=== PATIENT | male | born 1940 | race Caucasian/White ===

== ENCOUNTER 2019-10-29 14:41 | Outpatient (CLI) | payer MEDICARE, SELFPAY ==
--- NOTE | 2019-10-29 | MR_ITS ---
WS: [id number] MRI NECK WITH CONTRAST TECHNIQUE: Noncontrast axial T1, axial T2 FSE fat sat, coronal T2 fat sat, coronal T1, coronal T1 fat sat, sagittal T2 fat sat, plus contrast enhanced coronal, sagittal, and axial T1 fat sat images obta ined. CLINICAL INFORMATION: ATYPICAL FACIAL PAIN COMPARISON: None. FINDINGS: Proximal 7th and 8th cranial nerves appear normal. No evidence of enhancing IAC or CP angle mass. Mil d mucosal thickening in the paranasal sinuses. Mild mucosal thickening frontal sinuses, ethmoid air c ells, and maxillary sinuses. Mild partial opacification left greater than right frontal ethmoidal rec esses. Sphenoid sinuses are well aerated. Mastoid air cells well aerated. Left theresa bullosa. Mild l eft to right nasal septal deviation measuring 4 mm. No cervical lymphadenopathy. Parotid glands and submandibular glands are normal. Normal posterior matthew opharynx. Normal parapharyngeal fat. Normal optic chiasm and pituitary infundibulum. Moderate intracranial parenchymal volume loss. Modera te partially visualized small vessel changes. Chronic lacunar infarcts right deep frontal white matte r and periventricular white matter. Chronic lacunar infarct right basal ganglia. Normal vascular flow voids at the skull base. Small vessel changes in the pollo. Moderate spondylitic changes cervical spi ne with mild central canal stenosis due to disc osteophyte complexes C3-C6. Small vessel changes in t he pollo. Cerebellar atrophy. Neck soft tissues are normal in appearance. MR/MR orbit face neck wo/w* [id number] IMPRESSION: 1. Proximal 7th and 8th cranial nerves are normal in appearance. Mastoid air c ells are well aerated. 2. Mild mucosal thickening in the paranasal sinuses with partial opacification of the left frontal ethmoidal recess. 3. Prominent left theresa bullosa measuring 1.9 cm. 4. Moderate small vessel changes with moderate parenchymal volume loss partial ly visualized intracranial.
== END 2019-10-29 14:42 | disposition home or self-care (01) ==
LOC: RADWPI 14:52
PROVIDERS: Family Provider Family Medicine; PCP Family Medicine; Visit Provider Specialist
DX: G50.1 Atypical facial pain (principal); J34.89 Other specified disorders of nose and nasal sinuses
CPT/HCPCS: 70543; A9579

== ENCOUNTER → 2019-11-10 08:29 | Outpatient (BNVA) | payer MEDICARE, SELFPAY | PROVIDERS: Family Provider Family Medicine; PCP Family Medicine; Referring Provider Specialist; Visit Provider Specialist | DX: G50.0 Trigeminal neuralgia (principal); G11.9 Hereditary ataxia, unspecified | CPT/HCPCS: 99205 ==

== ENCOUNTER → 2019-12-16 13:35 | Outpatient (BNVA) | payer MEDICARE, SELFPAY | PROVIDERS: Family Provider Family Medicine; PCP Family Medicine; Visit Provider Specialist | DX: R29.90 Unspecified symptoms and signs involving the nervous system (principal); G11.9 Hereditary ataxia, unspecified; G50.0 Trigeminal neuralgia | CPT/HCPCS: 99213 ==

== ENCOUNTER → 2020-07-27 14:57 | Outpatient (BNVA) | payer MEDICARE, SELFPAY | PROVIDERS: Family Provider Family Medicine; PCP Family Medicine; Referring Provider Physician Assistant Medical; Visit Provider Nurse Practitioner Family | DX: N39.0 Urinary tract infection, site not specified (principal) | CPT/HCPCS: 81003; 87077; 87086; 87184 ==

== ENCOUNTER → 2020-10-19 11:33 | Outpatient (BNVA) | payer MEDICARE, SELFPAY | PROVIDERS: Family Provider Family Medicine; PCP Family Medicine; Visit Provider Urology | DX: R33.9 Retention of urine, unspecified (principal); N39.0 Urinary tract infection, site not specified | CPT/HCPCS: 81003; 87077; 87086; 87184 ==

== ENCOUNTER → 2020-10-25 13:12 | Outpatient (BNVA) | payer MEDICARE, SELFPAY | PROVIDERS: Family Provider Family Medicine; PCP Family Medicine; Visit Provider Specialist | DX: G50.0 Trigeminal neuralgia (principal); G11.9 Hereditary ataxia, unspecified; F03.90 Unspecified dementia, unspecified severity, without behavioral disturbance, psychotic disturbance, mood disturbance, and anxiety; Z87.891 Personal history of nicotine dependence | CPT/HCPCS: 99214 ==

== ENCOUNTER 2021-03-13 10:45 | Inpatient (IN) | payer MEDICARE, SELFPAY ==
[2021-03-13] VITALS (17 sets, daily range): BP systolic 115–146; BP diastolic 65–99; PULSE 57–110; RESP 13–27; TEMP 36.6–37.1; O2SAT 92–97; BMI 28.7
--- NOTE | 2021-03-13 11:13 | XRR_ITS ---
PROCEDURE INFORMATION: Exam: XR Chest Exam date and time: 03/13/2021 11:13 AM Age: 80 years old Clinical indication: Sternal or substernal pain and left-sided; Prior surgery; Surgery type: Heart stents; Patient HX: Md complaint: Chest pain and chest heaviness TECHNIQUE: Imaging protocol: XR of the chest. Views: 1 view. COMPARISON: CT abdomen pelvis w con* [id number] 07/26/2020 11:18 AM FINDINGS: Lungs: Patchy bibasilar opacities are present which may be due to bibasilar pneumonia. Pleural spaces: Unremarkable. No pleural effusion. No pneumothorax. Heart/Mediastinum: Unremarkable. No cardiomegaly. Bones/joints: Unremarkable. Other findings: There is dystrophic calcification below the right shoulder joint which may be from old injury. XR/XR chest 1V portable [id number] IMPRESSION: Patchy bibasilar opacities which may be due to bibasilar pneumonia.
--- NOTE | 2021-03-13 11:13 | CT_ITS ---
WS: [id number] CTA OF THE CHEST WITH PULMONARY EMBOLISM PROTOCOL TECHNIQUE: High-resolution contrast enhanced CTA of the chest with coronal and sagittal reformatted i mages with pulmonary embolism protocol. MIP images are also reviewed. CLINICAL INFORMATION: chest pain COMPARISON: None. DLP: 561.[address] scans at [facility] [place] use at least one of these dose optimization techniques: automated e xposure control; mA and/or kV adjustment per patient size (includes targeted exams where dose is matc hed to clinical indication); or iterative reconstruction. FINDINGS: Proximal main pulmonary arteries are normal. Normal segmental and subsegmental pulmonary arteries. No evidence for pulmonary embolus. Moderate chronic emphysematous changes. Subsegmental atelectasis in the lung bases with slight patchy infiltrates. Tiny left pleural effusion. Trace pleural fluid right lower lobe. Noncalcified 4 mm nod ule right upper lobe. Enlarged anterior mediastinal and peribronchial lymph nodes nonspecific but may be reactive. Calcified right hilar nodes. Normal caliber thoracic aorta. Aortic calcification. Adrenal glands are normal. Partially visualized bilateral renal cysts.Hypertrophic changes thoracic s pine with changes of diffuse idiopathic skeletal hyperostosis. CT/CT angio chest PE protcl [id number] IMPRESSION: 1. Proximal main pulmonary arteries are normal. No evidence of pulmonary embol us. 2. Moderate chronic emphysematous changes with patchy infiltrates in both lowe r lobes. Recommend correlation for pneumonia. Tiny left and trace right pleural fluid. 3. Enlarged anterior mediastinal and peribronchial lymph nodes nonspecific but may be reactive. 4. No other significant findings.
--- NOTE | 2021-03-13 11:15 | W.ED.CHESTPA ---
HPI - Chest Pain General: Chief Complaint: Chest Pain Stated Complaint: CHEST PAIN Time Seen by Provider: 03/13/21 10:51 History of Present Illness: HPI narrative: 80-year-old male presents to the emergency room from home. He had chest pain this afternoon is not been having any recently. Chest pain was relieved after 5 nitro took to his own and then several that the EMS gave him after he arrived here began bothering and interestingly also complained of chest pain with deep inspiration here. Patient has known history of coronary disease with previous stenting. MD complaint: chest pain and chest heaviness Pertinent past history: coronary artery disease Onset (ago): hour(s) Timing of current episode: episodic Prior episodes: Yes Onset: during rest Pain location: substernal and left chest Severity: moderate Quality: tightness, heaviness and similar to prior MD Relieving factors: nitroglycerin and rest Exacerbating factors: exertion Associated symptoms: Deny abdominal pain, diaphoresis, dyspnea, fever(s), leg edema, nausea, palpitations, sense of impending doom, syncope or vomiting Treatment prior to arrival: none Review of Systems Const: Denies: fever(s) or diaphoresis ENMT: Denies: throat pain, ear or mastoid pain, nasal discharge or nasal congestion Card: Denies: palpitations or syncope Resp: Denies: dyspnea GI: Denies: abdominal pain, nausea or vomiting : Denies: flank pain, dysuria, urinary frequency or urinary urgency Skin/Breast: Denies: rash or pruritus [facility] PFSH: Medical History Gross hematuria History of abdominal aortic aneurysm Recurrent UTI Urinary retention Surgical History H/O cataract extraction H/O hernia repair History of appendectomy History of back surgery Family History Mother , at age 82 Alzheimer disease Father , at age 62 Cancer Other CAD (coronary artery disease) Diabetes Social History Smoking and tobacco status: current every day smoker smokeless tobacco Second hand smoke exposure: No Smoking risk assessment/counseling performed?: No Alcohol intake: never Marital status: Current occupational status: retired History of recent travel: No Physical Exam Const: COMMON NORMALS: no acute distress GENERAL APPEARANCE: cooperative and comfortable ORIENTATION/CONSCIOUSNESS: Yes awake HENMT: COMMON NORMALS: normocephalic, atraumatic and hearing grossly normal bilaterally HEAD & SCALP: normocephalic and atraumatic Neck/C-Spine: COMMON NORMALS: no JVD Resp: COMMON NORMALS: normal respiratory effort, No retractions, No use of accessory muscles and clear to auscultation bilaterally AUSCULTATION: clear to auscultation bilaterally Cardio: COMMON NORMALS: no JVD, regular rate, regular rhythm and No murmurs present (Cardio) RATE: regular rate RHYTHM: regular rhythm GI: COMMON NORMALS: Soft to palpation and No hepatosplenomegaly present AUSCULTATION: Yes normoactive bowel sounds PALPATION: Yes Soft to palpation, No Tenderness to palpation present (GI), No Guarding due to palpation present (GI) and Yes No hepatosplenomegaly present Extremity: COMMON NORMALS: normal to inspection, capillary refill normal, no clubbing, cyanosis or edema, no calf tenderness and no pedal edema Skin: COMMON NORMALS: no rashes or lesions noted GENERAL SKIN EXAM: no rashes or lesions noted Course Vital Signs: Vital signs: Vital Signs Temperature 99.9 F H 03/15/21 03:26 Pulse Rate 0 L 03/15/21 05:00 Respiratory Rate 25 H 03/15/21 00:54 Blood Pressure 79/54 03/15/21 04:45 Pulse Oximetry 89 L 03/15/21 04:45 MDM - Chest Pain MDM Narrative: Medical decision making narrative: Labs and imaging reviewed as on the chart. Patient appears to have a mild bilateral lower lobe pneumonia in addition I am concerned about his description of chest pain. I do not think he can safely be discharged home he needs further evaluation. He has significant risk factors the delta on his troponin is negative 4, but his heart score puts him in the intermediate risk category. Discussed with hospitalist orders written Lab Data: Labs: Lab Results 03/13/21 03/13/21 03/13/21 11:01 11:01 11:01 WBC 9.0 10^3/uL 10^3/ uL (4.0-10.0) RBC 4.19 10^6/uL 10^6 /uL (4.1-5.3) Hgb 13.2 g/dL g/dL (11.7-16.6) Hct 40.5 % L % (42.0-52.0) MCV 96.7 fl H fl (80-94) MCH 31.5 pg pg (28.0-34.0) MCHC 32.6 g/dL g/dL (30.0-36.0) RDW 13.7 % % (12.1-15.1) Plt Count 142 10^3/cmm 10^3 /cmm (130-400) MPV 10.5 fL H fL (7.4-10.4) Neut % (Auto) 75.1 % % Lymph % (Auto) 10.7 % % Thomas % (Auto) 11.2 % % Eos % (Auto) 2.2 % % Baso % (Auto) 0.4 % % Neut # (Auto) 6.74 10^3/uL 10^3 /uL (1.8-7.7) Lymph # (Auto) 1.0 10^3/uL 10^3/ uL (0.8-4.8) Thomas # (Auto) 1.0 10^3/uL H 10^ 3/uL (0.2-0.9) Eos # (Auto) 0.2 10^3/uL 10^3/ uL (0.0-0.8) Baso # (Auto) 0.0 10^3/uL 10^3/ uL (0.0-0.1) Nucleated RBC % (a uto) 0 % % Total Counted Atypical Lymphs % Absolute Neutrophi ls Segmented Neutroph ils Abs Segm Neuts (Ma n) Band Neutrophils Abs Band Neuts (Ma n) Absolute Lymphocyt es Lymphocytes (Manua l) Monocytes (Manual) Absolute Monocytes Eosinophils (Manua l) Absolute Eosinophi ls Basophils (Manual) Absolute Basophils Metamyelocytes Nucleated RBCs Nucleated RBCs # 0.0 /100WBC /100W BC Toxic Granulation Toxic Vacuolation Platelet Estimate Specimen Type Sample Site ABG pH ABG pCO2 ABG pO2 ABG HCO3 ABG O2 Saturation ABG Base Excess Samir Test A-a O2 Gradient Hematocrit Hgb O2 Saturation Carboxyhemoglobin Methemoglobin Total Hemoglobin Ionized Calcium O2 Delivery Device O2 Liters/Min FiO2 Tidal Volume PEEP Termite Inspector ID Sodium 138 mmol/L mmol/L (136-145) Potassium 4.4 mmol/L mmol/L (3.5-5.1) Chloride 102 mmol/L mmol/L (98-107) Carbon Dioxide 25 mmol/L mmol/L (22-29) Anion Gap 15.4 (5-19) BUN 20 mg/dL mg/dL (8-23) Creatinine 0.9 mg/dL mg/dL (0.7-1.2) GFR Calculation Not Reportable Glucose 106 mg/dL mg/dL (65-115) POC Glucose Calculated Osmolal ity 289 mOsm/kg mOsm/ kg (285-295) Calcium 9.2 mg/dL mg/dL (8.5-10.5) Phosphorus Magnesium Total Bilirubin 0.3 mg/dL mg/dL (0.15-1.2) AST 22 U/L U/L (0-40) ALT 32 U/L U/L (0-41) Alkaline Phosphata se 92 IU/L IU/L (40-130) Creatine Kinase 70 U/L U/L (39-308) Troponin T Baselin e 30 ng/L H ng/L (0-15) Troponin T 120 Min [place] Troponin T Troponin T Hi Sens 6Hr Troponin T Hi Sens 6Hr Delta C-Reactive Protein NT-Pro-B Natriuret Pep 647 pg/mL H pg/mL (0-450) Total Protein 5.8 g/dL L g/dL (6.6-8.7) Albumin 3.8 g/dL g/dL (3.5-5.2) Globulin 2.0 g/dL g/dL (1.3-4.6) Procalcitonin TSH Random Cortisol Urine Color Urine Appearance Urine pH Ur Specific Gravit y Urine Protein Urine Glucose (UA) Urine Ketones Urine Blood Urine Nitrate Urine Bilirubin Urine Urobilinogen Ur Leukocyte Daphne ase Urine RBC Urine WBC Ur Squamous Epith Cells Ur Renal Epithelia l Cell Amorphous Sediment Urine Bacteria Nasal/Oral COVID-1 9 PCR SARS-CoV-2 Ag (Rap id) 03/13/21 03/13/21 03/13/21 11:01 13:10 13:32 WBC RBC Hgb Hct MCV MCH MCHC RDW Plt Count MPV Neut % (Auto) Lymph % (Auto) Thomas % (Auto) Eos % (Auto) Baso % (Auto) Neut # (Auto) Lymph # (Auto) Thomas # (Auto) Eos # (Auto) Baso # (Auto) Nucleated RBC % (a uto) Total Counted Atypical Lymphs % Absolute Neutrophi ls Segmented Neutroph ils Abs Segm Neuts (Ma n) Band Neutrophils Abs Band Neuts (Ma n) Absolute Lymphocyt es Lymphocytes (Manua l) Monocytes (Manual) Absolute Monocytes Eosinophils (Manua l) Absolute Eosinophi ls Basophils (Manual) Absolute Basophils Metamyelocytes Nucleated RBCs Nucleated RBCs # Toxic Granulation Toxic Vacuolation Platelet Estimate Specimen Type Sample Site ABG pH ABG pCO2 ABG pO2 ABG HCO3 ABG O2 Saturation ABG Base Excess Samir Test A-a O2 Gradient Hematocrit Hgb O2 Saturation Carboxyhemoglobin Methemoglobin Total Hemoglobin Ionized Calcium O2 Delivery Device O2 Liters/Min FiO2 Tidal Volume PEEP Termite Inspector ID Sodium Potassium Chloride Carbon Dioxide Anion Gap BUN Creatinine GFR Calculation Glucose POC Glucose Calculated Osmolal ity Calcium Phosphorus Magnesium Total Bilirubin AST ALT Alkaline Phosphata se Creatine Kinase Troponin T Baselin e Troponin T 120 Min [place] 25.90 ng/L H ng/L (0-15) Delta Troponin T -4.10 ABS# L ABS# (0-10) Troponin T Hi Sens 6Hr Troponin T Hi Sens 6Hr Delta C-Reactive Protein 121.4 mg/L H mg/L (0.0-4.9) NT-Pro-B Natriuret Pep Total Protein Albumin Globulin Procalcitonin 0.13 ng/mL ng/mL (0-0.5) TSH Random Cortisol Urine Color Straw (Yellow) Urine Appearance Sl hazy (CLEAR) Urine pH 5 (5-7) Ur Specific Gravit y 1.010 (1.005-1.030) Urine Protein Neg (Negative) Urine Glucose (UA) Norm (Normal) Urine Ketones Negative (Negative) Urine Blood 2+ H (Negative) Urine Nitrate Negative (Negative) Urine Bilirubin Neg (Negative) Urine Urobilinogen Norm mg/dL mg/dL (Negative) Ur Leukocyte Daphne ase 1+ H (Negative) Urine RBC Not Reportable Urine WBC 15-25 /hpf H /hpf (0-5) Ur Squamous Epith Cells Not Reportable Ur Renal Epithelia l Cell 0-2 /hpf /hpf Amorphous Sediment Not Reportable Urine Bacteria 3+ /hpf H /hpf (NONE) Nasal/Oral COVID-1 9 PCR SARS-CoV-2 Ag (Rap id) 03/13/21 03/13/21 03/13/21 13:34 13:34 16:27 WBC RBC Hgb Hct MCV MCH MCHC RDW Plt Count MPV Neut % (Auto) Lymph % (Auto) Thomas % (Auto) Eos % (Auto) Baso % (Auto) Neut # (Auto) Lymph # (Auto) Thomas # (Auto) Eos # (Auto) Baso # (Auto) Nucleated RBC % (a uto) Total Counted Atypical Lymphs % Absolute Neutrophi ls Segmented Neutroph ils Abs Segm Neuts (Ma n) Band Neutrophils Abs Band Neuts (Ma n) Absolute Lymphocyt es Lymphocytes (Manua l) Monocytes (Manual) Absolute Monocytes Eosinophils (Manua l) Absolute Eosinophi ls Basophils (Manual) Absolute Basophils Metamyelocytes Nucleated RBCs Nucleated RBCs # Toxic Granulation Toxic Vacuolation Platelet Estimate Specimen Type Sample Site ABG pH ABG pCO2 ABG pO2 ABG HCO3 ABG O2 Saturation ABG Base Excess Samir Test A-a O2 Gradient Hematocrit Hgb O2 Saturation Carboxyhemoglobin Methemoglobin Total Hemoglobin Ionized Calcium O2 Delivery Device O2 Liters/Min FiO2 Tidal Volume PEEP Termite Inspector ID Sodium Potassium Chloride Carbon Dioxide Anion Gap BUN Creatinine GFR Calculation Glucose POC Glucose Calculated Osmolal ity Calcium Phosphorus Magnesium Total Bilirubin AST ALT Alkaline Phosphata se Creatine Kinase Troponin T Baselin e Troponin T 120 Min [place] Troponin T Troponin T Hi Sens 6Hr 28.17 ng/L H ng/L (0-15) Troponin T Hi Sens 6Hr Delta -1.83 ng/L L ng/L (0-12) C-Reactive Protein NT-Pro-B Natriuret Pep Total Protein Albumin Globulin Procalcitonin TSH Random Cortisol Urine Color Urine Appearance Urine pH Ur Specific Gravit y Urine Protein Urine Glucose (UA) Urine Ketones Urine Blood Urine Nitrate Urine Bilirubin Urine Urobilinogen Ur Leukocyte Daphne ase Urine RBC Urine WBC Ur Squamous Epith Cells Ur Renal Epithelia l Cell Amorphous Sediment Urine Bacteria Nasal/Oral COVID-1 9 PCR Not detected SARS-CoV-2 Ag (Rap id) Negative (Negative) 03/14/21 03/14/21 03/14/21 01:49 02:00 02:00 WBC 2.9 10^3/uL L 10^ 3/uL (4.0-10.0) RBC 3.95 10^6/uL L 10 ^6/uL (4.1-5.3) Hgb 12.3 g/dL g/dL (11.7-16.6) Hct 40.4 % L % (42.0-52.0) MCV 102.3 fl H D fl (80-94) MCH 31.1 pg pg (28.0-34.0) MCHC 30.4 g/dL D g/dL (30.0-36.0) RDW 13.7 % % (12.1-15.1) Plt Count 77 10^3/cmm L D 1 0^3/cmm (130-400) MPV 10.1 fL fL (7.4-10.4) Neut % (Auto) Lymph % (Auto) Not Reportable Thomas % (Auto) Not Reportable Eos % (Auto) Baso % (Auto) Neut # (Auto) Lymph # (Auto) Not Reportable Thomas # (Auto) Not Reportable Eos # (Auto) Baso # (Auto) Nucleated RBC % (a uto) Total Counted 100 (0-100) Atypical Lymphs % 0.0 % % (0-5) Absolute Neutrophi ls 2.1 10^3/cmm 10^3 /cmm (1.4-6.5) Segmented Neutroph ils 41 % % Abs Segm Neuts (Ma n) 1.2 10/cmm L 10/c mm (1.6-7.1) Band Neutrophils 31.0 % % Abs Band Neuts (Ma n) 0.9 10^3/cmm 10^3 /cmm (0.0-1.2) Absolute Lymphocyt es 0.9 10^3/cmm L 10 ^3/cmm (1.2-3.4) Lymphocytes (Manua l) 31 % % Monocytes (Manual) 0.0 % % Absolute Monocytes 0.0 10^3/cmm L 10 ^3/cmm (0.1-0.6) Eosinophils (Manua l) 1 % % Absolute Eosinophi ls 0.0 10^3/cmm 10^3 /cmm (0.0-0.7) Basophils (Manual) 0.0 % % Absolute Basophils 0.0 10^3/cmm 10^3 /cmm (0.0-0.2) Metamyelocytes 10.0 % % Nucleated RBCs 2.0 /100WBC H /10 0WBC (0-1) Nucleated RBCs # Toxic Granulation 1+ H Toxic Vacuolation 1+ H Platelet Estimate Decreased (Normal) Specimen Type Sample Site ABG pH ABG pCO2 ABG pO2 ABG HCO3 ABG O2 Saturation ABG Base Excess Samri Test A-a O2 Gradient Hematocrit Hgb O2 Saturation Carboxyhemoglobin Methemoglobin Total Hemoglobin Ionized Calcium O2 Delivery Device O2 Liters/Min FiO2 Tidal Volume PEEP Termite Inspector ID Sodium 140 mmol/L mmol/L (136-145) Potassium 4.7 mmol/L mmol/L (3.5-5.1) Chloride 106 mmol/L mmol/L (98-107) Carbon Dioxide 19 mmol/L L mmol/ L (22-29) Anion Gap 19.7 H (5-19) BUN 28 mg/dL H mg/dL (8-23) Creatinine 1.6 mg/dL H mg/dL (0.7-1.2) GFR Calculation Not Reportable Glucose 144 mg/dL H mg/dL (65-115) POC Glucose 127 mg/dL H mg/dL (70-110) Calculated Osmolal ity 298 mOsm/kg H mOs m/kg (285-295) Calcium 8.6 mg/dL mg/dL (8.5-10.5) Phosphorus 5.0 mg/dL H mg/dL (2.5-4.5) Magnesium 2.3 mg/dL mg/dL (1.7-2.3) Total Bilirubin 0.7 mg/dL mg/dL (0.15-1.2) AST 103 U/L H U/L (0-40) ALT 104 U/L H U/L (0-41) Alkaline Phosphata se 196 IU/L H IU/L (40-130) Creatine Kinase Troponin T Baselin e Troponin T 120 Min [place] Troponin T Troponin T Hi Sens 6Hr Troponin T Hi Sens 6Hr Delta C-Reactive Protein NT-Pro-B Natriuret Pep 1172 pg/mL H pg/m L (0-450) Total Protein 5.3 g/dL L g/dL (6.6-8.7) Albumin 3.1 g/dL L g/dL (3.5-5.2) Globulin 2.2 g/dL g/dL (1.3-4.6) Procalcitonin TSH 9.94 uIU/mL H uIU /mL (0.27-4.20) Random Cortisol Urine Color Urine Appearance Urine pH Ur Specific Gravit y Urine Protein Urine Glucose (UA) Urine Ketones Urine Blood Urine Nitrate Urine Bilirubin Urine Urobilinogen Ur Leukocyte Daphne ase Urine RBC Urine WBC Ur Squamous Epith Cells Ur Renal Epithelia l Cell Amorphous Sediment Urine Bacteria Nasal/Oral COVID-1 9 PCR SARS-CoV-2 Ag (Rap id) 03/14/21 03/14/21 03/14/21 02:00 02:17 03:39 WBC RBC Hgb Hct MCV MCH MCHC RDW Plt Count MPV Neut % (Auto) Lymph % (Auto) Thomas % (Auto) Eos % (Auto) Baso % (Auto) Neut # (Auto) Lymph # (Auto) Thomas # (Auto) Eos # (Auto) Baso # (Auto) Nucleated RBC % (a uto) Total Counted Atypical Lymphs % Absolute Neutrophi ls Segmented Neutroph ils Abs Segm Neuts (Ma n) Band Neutrophils Abs Band Neuts (Ma n) Absolute Lymphocyt es Lymphocytes (Manua l) Monocytes (Manual) Absolute Monocytes Eosinophils (Manua l) Absolute Eosinophi ls Basophils (Manual) Absolute Basophils Metamyelocytes Nucleated RBCs Nucleated RBCs # Toxic Granulation Toxic Vacuolation Platelet Estimate Specimen Type Arterial Arterial Sample Site Brachial, left ABG pH 7.19 L 7.15 L* (7.35-7.45) (7.35-7.45) ABG pCO2 47.6 mmHg H mmHg 52.7 mmHg H mmHg (35-45) (35-45) ABG pO2 65.6 mmHg L mmHg 60.9 mmHg L mmHg (80.0-100.0) (80.0-100.0) ABG HCO3 17.9 mmol/L L mmo l/L 18.5 mmol/L L mmo l/L (22-26) (22-26) ABG O2 Saturation 87.6 84.2 ABG Base Excess -10.2 mmol/L L mm ol/L -10.3 mmol/L L mm ol/L (-2.0-2.0) (-2.0-2.0) Samir Test N/a N/a A-a O2 Gradient 3.5 mmHg L mmHg 77.1 mmHg H mmHg (5-10) (5-10) Hematocrit 37.6 % L % 33.2 % L % (42-52) (42-52) Hgb O2 Saturation 85.8 % L % 83.4 % L % (95-100) (95-100) Carboxyhemoglobin 1.1 %THgb %THgb 0.8 %THgb %THgb (0.4-20.1) (0.4-20.1) Methemoglobin 1.0 % % 0.2 % L % (0.4-1.5) (0.4-1.5) Total Hemoglobin 12.3 g/dL L g/dL 10.8 g/dL L g/dL (14-18) (14-18) Ionized Calcium 1.2 mmol/L mmol/L 1.2 mmol/L mmol/L (1.1-1.4) (1.1-1.4) O2 Delivery Device Ambu Vent O2 Liters/Min 15.0 % % FiO2 100.0 % % Tidal Volume 0.45 PEEP 8.0 cmH20 cmH20 Termite Inspector ID Harkr Rashawn Sodium 140.0 mmol/L mmol /L 142.0 mmol/L mmol /L (131-143) (131-143) Potassium 4.2 mmol/L mmol/L 4.6 mmol/L mmol/L (3.5-5.0) (3.5-5.0) Chloride Carbon Dioxide Anion Gap BUN Creatinine GFR Calculation Glucose 135.0 mg/dL H mg/ dL 80.0 mg/dL mg/dL (70-115) (70-115) POC Glucose Calculated Osmolal ity Calcium Phosphorus Magnesium Total Bilirubin AST ALT Alkaline Phosphata se Creatine Kinase Troponin T Baselin e 59 ng/L H ng/L (0-15) Troponin T 120 Min [place] Troponin T Troponin T Hi Sens 6Hr Troponin T Hi Sens 6Hr [place] C-Reactive Protein NT-Pro-B Natriuret Pep Total Protein Albumin Globulin Procalcitonin TSH Random Cortisol Urine Color Urine Appearance Urine pH Ur Specific Gravit y Urine Protein Urine Glucose (UA) Urine Ketones Urine Blood Urine Nitrate Urine Bilirubin Urine Urobilinogen Ur Leukocyte Daphne ase Urine RBC Urine WBC Ur Squamous Epith Cells Ur Renal Epithelia l Cell Amorphous Sediment Urine Bacteria Nasal/Oral COVID-1 9 PCR SARS-CoV-2 Ag (Rap id) 03/14/21 03/14/21 03:53 03:53 WBC RBC Hgb Hct MCV MCH MCHC RDW Plt Count MPV Neut % (Auto) Lymph % (Auto) Thomas % (Auto) Eos % (Auto) Baso % (Auto) Neut # (Auto) Lymph # (Auto) Thomas # (Auto) Eos # (Auto) Baso # (Auto) Nucleated RBC % (a uto) Total Counted Atypical Lymphs % Absolute Neutrophi ls Segmented Neutroph ils Abs Segm Neuts (Ma n) Band Neutrophils Abs Band Neuts (Ma n) Absolute Lymphocyt es Lymphocytes (Manua l) Monocytes (Manual) Absolute Monocytes Eosinophils (Manua l) Absolute Eosinophi ls Basophils (Manual) Absolute Basophils Metamyelocytes Nucleated RBCs Nucleated RBCs # Toxic Granulation Toxic Vacuolation Platelet Estimate Specimen Type Sample Site ABG pH ABG pCO2 ABG pO2 ABG HCO3 ABG O2 Saturation ABG Base Excess Samir Test A-a O2 Gradient Hematocrit Hgb O2 Saturation Carboxyhemoglobin Methemoglobin Total Hemoglobin Ionized Calcium O2 Delivery Device O2 Liters/Min FiO2 Tidal Volume PEEP Termite Inspector ID Sodium Potassium Chloride Carbon Dioxide Anion Gap BUN Creatinine GFR Calculation Glucose POC Glucose Calculated Osmolal ity Calcium Phosphorus Magnesium Total Bilirubin AST ALT Alkaline Phosphata se Creatine Kinase Troponin T Baselin e Troponin T 120 Min [place] 79.51 ng/L H ng/L (0-15) Delta Troponin T 20.51 ABS# H* ABS # (0-10) Troponin T Hi Sens 6Hr Troponin T Hi Sens 6Hr [place] C-Reactive Protein 85.8 mg/L H mg/L (0.0-4.9) NT-Pro-B Natriuret Pep Total Protein Albumin Globulin Procalcitonin 20.01 ng/mL H ng/ mL (0-0.5) TSH Random Cortisol 44.73 ug/dL H ug/ dL (2.47-19.5) Urine Color Urine Appearance Urine pH Ur Specific Gravit y Urine Protein Urine Glucose (UA) Urine Ketones Urine Blood Urine Nitrate Urine Bilirubin Urine Urobilinogen Ur Leukocyte Daphne ase Urine RBC Urine WBC Ur Squamous Epith Cells Ur Renal Epithelia l Cell Amorphous Sediment Urine Bacteria Nasal/Oral COVID-1 9 PCR SARS-CoV-2 Ag (Rap id) Discharge Plan Discharge Patient Disposition: Admitted As Inpatient Admit Provider: Presley Robbins Clinical Impression: Pneumonia, Chest pain Condition: Stable Coding Level of Care Code ED Temple Marker for Chg Fwd Exam Comprehensive
[2021-03-13 11:26] LABS: Basophils % 0.4 %; Eosinophils # 0.2 10^3/uL (0.0-0.8); Eosinophils % 2.2 %; Hematocrit 40.5 % (42.0-52.0); Hemoglobin 13.2 g/dL (11.7-16.6); Lymphocytes % 10.7 %; Mean Corpuscular HGB Conc 32.6 g/dL (30.0-36.0); Mean Corpuscular Hemoglobin 31.5 pg (28.0-34.0); Mean Corpuscular Volume 96.7 fl (80-94); Mean Platelet Volume 10.5 fL (7.4-10.4); Monocytes % 11.2 %; Neutrophils # 6.74 10^3/uL (1.8-7.7); Neutrophils % 75.1 %; Nucleated Red Blood Cells % 0 %; Platelet Count 142 10^3/cmm (130-400); Red Blood Count 4.19 10^6/uL (4.1-5.3); Red Cell Distribution Width 13.7 % (12.1-15.1)
[2021-03-13] MEDS: nitroglycerin 1 gm/inch oint Pkt 0.5 INCH TOPICAL (11:56)
[2021-03-13] MEDS: morphine 4 mg/mL SDV 1 mL 2 MG IVP (11:56)
[2021-03-13 12:00] LABS: Troponin(5th) Baseline 30 ng/L (0-15)
[2021-03-13 12:10] LABS: Alanine Aminotransferase 32 U/L (0-41); Albumin Level 3.8 g/dL (3.5-5.2); Alkaline Phosphatase 92 IU/L (40-130); Anion Gap 15.4 (5-19); Aspartate Amino Transferase 22 U/L (0-40); Blood Urea Nitrogen 20 mg/dL (8-23); Calcium 9.2 mg/dL (8.5-10.5); Carbon Dioxide 25 mmol/L (22-29); Chloride 102 mmol/L (98-107); Creatine Phosphokinase 70 U/L (39-308); Glucose 106 mg/dL (65-115); NT Pro B Type Natriuretic Pept 647 pg/mL (0-450); Osmolality Calculated 289 mOsm/kg (285-295); Potassium 4.4 mmol/L (3.5-5.1); Sodium 138 mmol/L (136-145); Total Bilirubin 0.3 mg/dL (0.15-1.2); Total Protein 5.8 g/dL (6.6-8.7)
[2021-03-13] MEDS: iohexol 350 mg/mL 100 mL Btl IV (12:34)
--- NOTE | 2021-03-13 13:13 | ECG_ITS ---
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 Measurements Intervals [place] Rate: 64 P: -45 SC: 331 QRS: -6 QRSD: 158 T: 18 QT: 426 QTc: 440 Interpretive Statements SINUS RHYTHM WITH FIRST DEGREE AV BLOCK INTRAVENTRICULAR CONDUCTION DELAY [130+ ms QRS DURATION] POSSIBLE LATERAL MYOCARDIAL INFARCTION , OF INDETERMINATE AGE [30 ms Q WAVE IN I/aVL/V5/V6] Compared to ECG 03/13/2021 11:14:01 Myocardial infarct finding now present Sinus bradycardia no longer present Electronically Signed On 03-14-2021 23:43:31 CDT by Serge Sevilla M.D. [id number]
[2021-03-13] MEDS: levofloxacin-dextrose 5 % 750 MG/150 ML PREMIX 100 MG IV (14:30)
[2021-03-13] MEDS: nitroglycerin drip 50 MG/250 ML PREMIX IV (14:32)
[2021-03-13 14:48] LABS: SARS Covid-2 Antigen Negative (Negative)
--- NOTE | 2021-03-13 15:23 | PM.HP ---
Providers/Chief Complaint Admitting Physician: Presley Robbins MD Primary Care Provider: Angie Mendez MD Chief Complaint: CHEST PAIN History of Present Illness Sonia Castellon is a 80 year old male history of recurrent UTIs, cerebellar dysfunction, trigeminal neuralgia, dementia, CAD status post stenting x1 who presents to [facility] due to complaints of chest pain. Patient tells her that he lives in [place] with his , he cannot walk due to cerebellar dysfunction, bilateral extremity weakness and neuropathy, he ambulates in a walker, he has been doing well relatively, has received both Pfizer vaccines roughly 2 to 3 months ago. He tells me that this morning he woke up with severe substernal chest pain, left-sided, radiating to left shoulder, associate with some shortness of breath, no lightheadedness, dizziness, night no diaphoresis, pain abated a bit with the first nitroglycerin, however the pain started to radiate to the right chest, and persisted beyond 2 nitroglycerin, he then called the ambulance and was brought to [facility], here he continued to complain of chest pain, was placed on a nitroglycerin drip, chest pain has improved, but has complaints of pleuritic-like chest pain, CT angiogram of the chest was unremarkable for pulmonary emboli, but does show patchy infiltrates in both lower lobes. Baseline troponin 30, delta 4.1, BNP 647, EKG no acute ST-T wave changes, hospitalist team was called for admission due to continued chest pain. Review of Systems Const: Denies: fever(s), chills, fatigue or malaise Eyes: Denies: change in vision or blurry vision ENMT: Denies: nasal congestion Card: Reports: chest pain and lightheadedness; Denies: palpitations, irregular heart rhythm, edema, swelling of feet/ankles, syncope, pre-syncope or dyspnea on exertion Resp: Reports: dyspnea and non-productive cough; Denies: productive cough or wheezing GI: Denies: abdominal pain, nausea, vomiting, hematemesis, diarrhea, constipation, hematochezia or melena : Denies: flank pain, difficulty urinating, dysuria or urinary frequency Musc: Denies: neck pain or back pain Skin/Breast: Denies: rash Neuro: Denies: headache(s), dizziness or vertigo Endo: Denies: polyuria or polydipsia Medications/Allergies Home Medications Medication Instructions Recorded Confirmed Last Taken Type allopurinol 300 mg tablet 300 mg PO DAILY 11/10/19 03/13/21 03/12/21 History finasteride 5 mg tablet 5 mg PO DAILY 11/10/19 03/13/21 03/12/21 History lisinopril 20 mg tablet 20 mg PO DAILY 11/10/19 03/13/21 03/12/21 History pravastatin 20 mg tablet 20 mg PO DAILY 11/10/19 03/13/21 03/12/21 History fluticasone propionate 50 1 spray INTRANASAL DAILY 07/27/20 03/13/21 03/12/21 History mcg/actuation nasal spray,suspension ipratropium bromide 42 mcg (0.06 2 spray INTRANASAL BID PRN ml 10/19/20 03/13/21 Unknown History %) nasal spray ascorbic acid (vitamin C) 1,000 mg 1,000 mg PO BID tab 11/22/20 03/13/21 03/12/21 History tablet colchicine 0.6 mg tablet 0.6 mg PO DAILY PRN 12/27/20 03/13/21 Unknown History lamotrigine 100 mg tablet 100 mg PO BID #90 tab 01/09/21 03/13/21 03/12/21 Rx methenamine hippurate 1 gram tablet 1 g PO BID #180 tab 02/28/21 03/13/21 03/12/21 Rx aspirin 81 mg PO DAILY 03/13/21 03/13/21 03/13/21 History 4 tabs 03/13/21 buspirone 10 mg PO TID 03/13/21 03/13/21 03/12/21 History carvedilol 25 mg PO BID 03/13/21 03/13/21 03/12/21 History donepezil 10 mg PO DAILY 03/13/21 03/13/21 03/12/21 History tamsulosin [Flomax] 0.4 mg PO DAILY 03/13/21 03/13/21 03/12/21 History Allergies Allergy/AdvReac Type Severity Reaction Status Date / Time No Known Allergies Allergy Verified 12/27/20 15:09 PFSH Acute PFSH: Medical History Gross hematuria History of abdominal aortic aneurysm Recurrent UTI Urinary retention Surgical History H/O cataract extraction H/O hernia repair History of appendectomy History of back surgery Family History Mother , at age 82 Alzheimer disease Father , at age 62 Cancer Other CAD (coronary artery disease) Diabetes Social History Smoking and tobacco status: current every day smoker smokeless tobacco Second hand smoke exposure: No Smoking risk assessment/counseling performed?: No Alcohol intake: never Marital status: Current occupational status: retired History of recent travel: No Vitals/I&O/Wt Last Vital Signs Temp 98.7 F 03/13/21 11:10 Pulse 61 03/13/21 14:30 Resp 18 03/13/21 14:30 BP 130/83 03/13/21 14:30 Pulse Ox 96 03/13/21 14:30 Weight last 48 hrs Weight 90.718 kg Physical Exam Const: COMMON NORMALS: no acute distress and patient oriented x3 GENERAL APPEARANCE: comfortable Eye: COMMON NORMALS: Equal, round and reactive pupils present and EOMs intact bilaterally GENERAL EYE: appearance normal, both eyes and all related structures PUPIL: Yes Equal, round and reactive pupils present Neck/C-Spine: COMMON NORMALS: full ROM and Thyroid normal Resp: COMMON NORMALS: normal respiratory effort, No retractions, No use of accessory muscles and clear to auscultation bilaterally AUSCULTATION: clear to auscultation bilaterally Cardio: COMMON NORMALS: regular rate, regular rhythm, S1 normal heart sound present, S2 normal heart sound present, No gallops present (Cardio), No clicks present (Cardio) and No murmurs present (Cardio) RATE: regular rate RHYTHM: regular rhythm HEART SOUNDS: S1 normal heart sound present and S2 normal heart sound present GI: COMMON NORMALS: Normal to inspection, nondistended, normoactive bowel sounds present, Soft to palpation and non-tender Extremity: COMMON NORMALS: no pedal edema Neuro: COMMON NORMALS: patient oriented x3, CN's II-XII intact bilaterally and moves all extremities Psych: COMMON NORMALS: mental status grossly normal Data : 03/13/21 11:01 03/13/21 11:01 A&P Assessment and plan (1) Chest pain: -Unstable angina -Baseline troponin 30, 120-minute 25.9, delta 4.1 -EKG no acute ST-T wave changes -Seems like cardiac in nature Plan: -Admit to [facility]SU -Serial troponins, serial EKGs, telemetry monitoring -Cardiac echocardiogram -Consult cardiology service -Aspirin, statin, Coreg, continue nitro drip -We will start therapeutic Lovenox -N.p.o. midnight, for possible cardiac evaluation tomorrow morning Pneumonia of both lower lobes, CT angiogram shows patchy infiltrates bilateral lower lobes, -Currently on 2 L, has a complaint of cough, no fevers, has shortness of breath associated chest pain -Has received both Covid vaccinations -Rapid Covid negative, Covid PCR pending -Received Levaquin in the emergency room -Continue Rocephin and azithromycin -Follow blood cultures, urine bacterial antigens Dementia, continue home medications Cerebellar ataxia trigeminal neuralgia, continue home medications History of recurrent UTIs, obtain a UA Full code Lovenox for DVT prophylaxis Protonix for GI prophylaxis Status: Acute (2) Pneumonia of both lower lobes: Status: Acute (3) Dementia: Status: Acute (4) Cerebellar ataxia: Status: Acute (5) Trigeminal neuralgia: Status: Acute Attestations Medical Necessity Statement*: Patient requires hospitalization, outpatient with observation, for chest pain Coding Level of Care Code 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
--- NOTE | 2021-03-13 17:13 | ECG_ITS ---
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 Measurements Intervals [place] Rate: 57 P: -35 AK: 326 QRS: -11 QRSD: 146 T: 12 QT: 434 QTc: 424 Interpretive Statements SINUS BRADYCARDIA WITH FIRST DEGREE AV BLOCK INTRAVENTRICULAR CONDUCTION DELAY [130+ ms QRS DURATION] Compared to ECG 11/22/2015 14:43:17 Intraventricular conduction delay now present Right bundle-branch block no longer present Electronically Signed On 03-14-2021 23:42:12 CDT by Serge Sevilla M.D. [id number]
[2021-03-13 17:22] LABS: Troponin 5 6HR 28.17 ng/L (0-15)
[2021-03-13 17:25] LABS: Troponin 5 6HR Delta -1.83 ng/L (0-12)
--- NOTE | 2021-03-13 18:00 | PC.NURSE ---
Pt arrived from ED via stretcher to room 104. Pt transferred from stretcher to bed via hover mat. Pt tolerated well. Pt has no c/o pain or discomfort at the present time. No needs voiced. Call light in reach. Will cont to monitor.
[2021-03-13 18:17] LABS: Procalcitonin 0.13 ng/mL (0-0.5)
[2021-03-13 18:30] LABS: C Reactive Protein 121.4 mg/L (0.0-4.9)
[2021-03-13] MEDS: lamoTRIgine 100 mg Tablet PO (18:39)
[2021-03-13] MEDS: pantoprazole DR 40 mg Tablet PO (18:39)
[2021-03-13] MEDS: ascorbic acid 500 mg Tablet 1000 MG PO (18:39)
[2021-03-13] MEDS: carvedilol 25 mg Tablet PO (18:39)
[2021-03-13] MEDS: enoxaparin 100 mg/mL Syringe 90 MG SUBCUT (18:39)
--- NOTE | 2021-03-13 19:07 | PM.CONSULT ---
Providers/Reason For Consult Consulting Physician/Specialty*: PRADEEP Sevilla MD/cardiology Reason for Consult*: Patient with a history of coronary artery disease, presenting with chest pain Attending Physician: Presley Robbins MD Primary Care Provider: Angie Mendez MD History of Present Illness History of Present Illness Sonia Castellon is a 80 year old male is admitted to the hospital through the emergency room, where he presents with complaints of rather acute onset of chest pain since this morning. This patient apparently has been in his baseline state of health up until 6:00 this morning when he started having chest pain in the lower inframammary region. He had some radiation of pain to the back that was also to the shoulders. Then the pain started radiate to the right side of the chest in the inframammary region. Now he has more or less persistent pain which gets worse with a deep inspiration. He also has some shortness of breath. Minimal diaphoresis. No nausea or vomiting. No sweating. No palpitation. No other specific complaints. He has a history of coronary artery disease and had PCI by Dr. Mcfarlane at the [facility] approximately 12 years ago. According the patient, he has not had any chest significant chest pains or specific cardiac symptoms since then. He has a history of hypertension, dyslipidemia, dementia, cerebellar ataxia,? Peripheral neuropathy and trigeminal neuralgia. Currently he has a persistent lower anterior chest pain which gets worse with deep inspiration or cough. Review of Systems Narrative: CONSTITUTIONAL: No fever or chills. EYES: No blurring of vision or other visual disturbances lately. ENT: No hoarseness of voice, auditory disturbances or sore throat. CARDIOVASCULAR: As mentioned above. RESPIRATORY: Shortness of breath and pain as mentioned above GASTROINTESTINAL: No hematemesis or melena. GENITOURINARY: No dysuria or hematuria. INTEGUMENTARY: No skin rashes or history of skin cancer. NEURO: History of cerebellar ataxia, none trigeminal neuralgia,? Peripheral neuropathy PSYCHIATRIC: No history of psychosis or major depression. HEMATOLOGIC: No bleeding disorders or significant anemia. ENDOCRINE: No history of polyuria or polydipsia. MUSCULOSKELETAL: No recent joint pain or swelling. ALLERGY/IMMUNOLOGY: As mentioned above. Meds/Allergies Home Medications and Allergies Home Medications Medication Instructions Recorded Confirmed Last Taken Type allopurinol 300 mg tablet 300 mg PO DAILY 0503/13/21 03/12/21 History finasteride 5 mg tablet 5 mg PO DAILY 11/10/19 03/13/21 03/12/21 History lisinopril 20 mg tablet 20 mg PO DAILY 11/10/19 03/13/21 03/12/21 History pravastatin 20 mg tablet 20 mg PO DAILY 11/10/19 03/13/21 03/12/21 History fluticasone propionate 50 1 spray INTRANASAL DAILY 07/27/20 03/13/21 03/12/21 History mcg/actuation nasal spray,suspension ipratropium bromide 42 mcg (0.06 2 spray INTRANASAL BID PRN ml 10/19/20 03/13/21 Unknown History %) nasal spray ascorbic acid (vitamin C) 1,000 mg 1,000 mg PO BID tab 11/22/20 03/13/21 03/12/21 History tablet colchicine 0.6 mg tablet 0.6 mg PO DAILY PRN 12/27/20 03/13/21 Unknown History lamotrigine 100 mg tablet 100 mg PO BID #90 tab 01/09/21 03/13/21 03/12/21 Rx methenamine hippurate 1 gram tablet 1 g PO BID #180 tab 02/28/21 03/13/21 03/12/21 Rx aspirin 81 mg PO DAILY 03/13/21 03/13/21 03/13/21 History 4 tabs 03/13/21 buspirone 10 mg PO TID 03/13/21 03/13/21 03/12/21 History carvedilol 25 mg PO BID 03/13/21 03/13/21 03/12/21 History donepezil 10 mg PO DAILY 03/13/21 03/13/21 03/12/21 History tamsulosin [Flomax] 0.4 mg PO DAILY 03/13/21 03/13/21 03/12/21 History Allergies Allergy/AdvReac Type Severity Reaction Status Date / Time No Known Allergies Allergy Verified 12/27/20 15:09 Current Medications Current Medications Generic Name Dose Route Start Last Admin Trade Name Freq PRN Reason Stop Dose Admin Ascorbic Acid 1,000 mg 03/13/21 18:00 03/13/21 18:39 Ascorbic Acid 500 Mg Tablet PO 1,000 mg BID ERASTO Administration Carvedilol 25 mg 03/13/21 18:00 03/13/21 18:39 Carvedilol 25 Mg Tablet PO 25 mg BID ERASTO Administration Enoxaparin Sodium 90 mg 03/13/21 18:00 03/13/21 18:39 Enoxaparin 100 Mg/Ml Syringe 1 mg/kg (90 mg) 90 mg SUBCUT Administration Q12H ERASTO Nitroglycerin/Dextrose 50 mg in 250 mls @ 0 mls/hr 03/13/21 14:15 03/13/21 14:32 Nitroglycerin Drip IV 5 mcg/min .Q0M ERASTO 1.5 mls/hr Administration Protocol Per Protocol Lamotrigine 100 mg 03/13/21 18:00 03/13/21 18:39 Lamotrigine 100 Mg Tablet PO 100 mg BID ERASTO Administration Pantoprazole Sodium 40 mg 03/13/21 17:01 03/13/21 18:[address] 40 Mg Tablet PO 40 mg Q12H ERASTO Administration PFSH Acute PFSH: Medical History Gross hematuria History of abdominal aortic aneurysm Recurrent UTI Urinary retention Surgical History H/O cataract extraction H/O hernia repair History of appendectomy History of back surgery Family History Mother , at age 82 Alzheimer disease Father , at age 62 Cancer Other CAD (coronary artery disease) Diabetes Social History Smoking and tobacco status: current every day smoker smokeless tobacco Second hand smoke exposure: No Smoking risk assessment/counseling performed?: No Alcohol intake: never Marital status: Current occupational status: retired History of recent travel: No Vitals/I&O/Wt Last Vital Signs Temp 98.7 F 03/13/21 16:22 Pulse 62 03/13/21 17:01 Resp 17 03/13/21 17:01 BP 136/77 03/13/21 17:01 Pulse Ox 95 03/13/21 17:01 03/13/21 03/13/21 03/13/21 06:59 14:59 22:59 Intake Total 150 / 150 Balance 150 / 150 Weight last 48 hrs Weight 200 lb Physical Exam Narrative: EXAM NARRATIVE: GENERAL: The patient is alert and oriented times three. Not in any acute distress. Hard of hearing HEENT: No significant pallor, icterus or lymphadenopathy. The pupils are symmetrical. Oral cavity: There are no mucous membrane lesions. Funduscopic examination: The fundus is not visualized NECK: Trachea appears to be central. No masses noted. No JVD or thyromegaly appreciated. No carotid bruit. RESPIRATORY: Chest is symmetrical. No intercostals muscle retraction or any accessory muscle activation. There is no chest wall tenderness. Breath sounds are heard bilaterally. Few coarse crackles at the base BREASTS: Deferred. HEART: The PMI could not be palpated. No other palpable precordial events. S1 and S2 are normal. No S3 or S4 heard. No pericardial rub or any click heard. ABDOMEN: No vessel pulsations or distention. No tenderness. No organomegaly appreciated. No abdominal bruit. Bowel sounds are normally heard. : Deferred. RECTAL: Deferred. LYMPHATIC: No lymphadenopathy noted in the neck or groin. EXTREMITIES: Trace to 1+ edema bilaterally with no cyanosis. Peripheral pulses are palpable but weak bilaterally. MUSCULOSKELETAL: No acute joint deformities or swelling SKIN: There are no significant scars or skin rash noted. NEUROPSYCHIATRIC: The patient is alert and oriented x3. Appears to be in a good mood. The higher functions are grossly within normal limits. No tremors or rigidity noted. Data Labs: Other Labs: Laboratory Last Values WBC 9.0 10^3/uL (4.0- 10.0) 03/13/21 11:01 RBC 4.19 10^6/uL (4.1 -5.3) 03/13/21 11:01 Hgb 13.2 g/dL (11.7-1 6.6) 03/13/21 11:01 Hct 40.5 % (42.0-52.0 ) L 03/13/21 11:01 MCV 96.7 fl (80-94) H 03/13/21 11:01 MCH 31.5 pg (28.0-34. 0) 03/13/21 11:01 MCHC 32.6 g/dL (30.0-3 6.0) 03/13/21 11:01 RDW 13.7 % (12.1-15.1 ) 03/13/21 11:01 Plt Count 142 10^3/cmm (130 -400) 03/13/21 11:01 MPV 10.5 fL (7.4-10.4 ) H 03/13/21 11:01 Neut % (Auto) 75.1 % 03/13/21 11:01 Lymph % (Auto) 10.7 % 03/13/21 11:01 [place] % (Auto) 11.2 % 03/13/21 11:01 Eos % (Auto) 2.2 % 03/13/21 11:01 Baso % (Auto) 0.4 % 03/13/21 11:01 Neut # (Auto) 6.74 10^3/uL (1.8 -7.7) 03/13/21 11:01 Lymph # (Auto) 1.0 10^3/uL (0.8- 4.8) 03/13/21 11:01 [place] # (Auto) 1.0 10^3/uL (0.2- 0.9) H 03/13/21 11:01 Eos # (Auto) 0.2 10^3/uL (0.0- 0.8) 03/13/21 11:01 Baso # (Auto) 0.0 10^3/uL (0.0- 0.1) 03/13/21 11:01 Nucleated RBC % (a uto) 0 % 03/13/21 11:01 Nucleated RBCs # 0.0 /100WBC 03/13/21 11:01 Sodium 138 mmol/L (136-1 45) 03/13/21 11:01 Potassium 4.4 mmol/L (3.5-5 .1) 03/13/21 11:01 Chloride 102 mmol/L (98-10 7) 03/13/21 11:01 Carbon Dioxide 25 mmol/L (22-29) 03/13/21 11:01 Anion Gap 15.4 (5-19) 03/13/21 11:01 BUN 20 mg/dL (8-23) 03/13/21 11:01 Creatinine 0.9 mg/dL (0.7-1. 2) 03/13/21 11:01 GFR Calculation Not Reportable 03/13/21 11:01 Glucose 106 mg/dL (65-115 ) 03/13/21 11:01 Calculated Osmolal ity 289 mOsm/kg (285- 295) 03/13/21 11:01 Calcium 9.2 mg/dL (8.5-10 .5) 03/13/21 11:01 Total Bilirubin 0.3 mg/dL (0.15-1 .2) 03/13/21 11:01 AST 22 U/L (0-40) 03/13/21 11:01 ALT 32 U/L (0-41) 03/13/21 11:01 Alkaline Phosphata se 92 IU/L (40-130) 03/13/21 11:01 Creatine Kinase 70 U/L (39-308) 03/13/21 11:01 Troponin T Baselin e 30 ng/L (0-15) H 03/13/21 11:01 Troponin T 120 Min vicente 25.90 ng/L (0-15) H 03/13/21 13:10 Delta Troponin T -4.10 ABS# (0-10) L 03/13/21 13:10 Troponin T Hi Sens 6Hr 28.17 ng/L (0-15) H 03/13/21 16:27 Troponin T Hi Sens 6Hr Delta -1.83 ng/L (0-12) L 03/13/21 16:27 C-Reactive Protein 121.4 mg/L (0.0-4 .9) H 03/13/21 11:01 NT-Pro-B Natriuret Pep 647 pg/mL (0-450) H 03/13/21 11:01 Total Protein 5.8 g/dL (6.6-8.7 ) L 03/13/21 11:01 Albumin 3.8 g/dL (3.5-5.2 ) 03/13/21 11:01 Globulin 2.0 g/dL (1.3-4.6 ) 03/13/21 11:01 Procalcitonin 0.13 ng/mL (0-0.5 ) 03/13/21 11:01 SARS-CoV-2 Ag (Rap id) Negative (Negati ve) 03/13/21 13:34 Micro: Micro: Microbiology 03/13/21 16:35 Blood Culture - Pr eliminary Blood SPECIMEN COLLEC JORGE LUIS 03/13/21 16:27 Blood Culture - Pr eliminary Blood SPECIMEN COLLE JORGE LUIS Imaging^: CTA Chest: Radiologist's impression: 1. Proximal main pulmonary arteries are normal. No evidence of pulmonary embolus. 2. Moderate chronic emphysematous changes with patchy infiltrates in both lower lobes. Recommend correlation for pneumonia. Tiny left and trace right pleural fluid. 3. Enlarged anterior mediastinal and peribronchial lymph nodes nonspecific but may be reactive. 4. No other significant findings. EKG^: EKG 1: My Interpretation: The EKG shows normal sinus rhythm with nonspecific IVCD. First-degree AV block. No significant ST-T changes. A&P Assessment and plan (1) Chest pain: Patient chest pain is mostly pleuritic in nature. Most likely the underlying bilateral lower lobe pneumonia is causing the pain. There is no evidence of myocardial injury so far. The EKG is unremarkable. Status: Acute Qualifiers: Chest pain type: other chest pain Qualified Code(s): R07.89 - Other chest pain (2) Atherosclerotic heart disease of jackson coronary artery with other forms of angina pectoris: Patient has a history of atherosclerotic heart disease and previous PCI. But the current symptoms most likely are unrelated to the heart. There may be a component of coronary ischemia but it is not convincing. An echocardiogram would be helpful to evaluate LV function and to rule out any other pathology. We might consider doing a chemical stress test, to further evaluate his coronary status and decide on management. Status: Acute (3) Pneumonia of both lower lobes: The etiology of the pneumonia is not known at this point. Empiric antibiotic treatment as per the primary Status: Acute Qualifiers: Pneumonia type: due to unspecified organism Qualified Code(s): J18.9 - Pneumonia, unspecified organism (4) Cerebellar ataxia: Patient is being followed by Dr. Rodriguez. May continue on the current medications Status: Acute (5) Benign essential hypertension with target blood pressure below 140/90: Currently normotensive. May continue on the current medications. Status: Acute (6) Dyslipidemia: May continue on the lipid-lowering agent. Status: Acute Additional A&P Information After reviewing the above and also based on the patient's the clinical progress, further recommendations will be made. 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
[2021-03-13 19:47] LABS: Charge for UA Resulting for Rev
[2021-03-13 20:32] LABS: Urine Color Straw (Yellow)
[2021-03-13 20:33] LABS: Add Urine Microscopic? YES; Bilirubin Urine Neg (Negative); Blood Urine 2+ (Negative); Glucose Urine UA Norm (Normal); Ketones Urine Negative (Negative); Leukocyte Esterase Urine 1+ (Negative); Nitrate Urine Negative (Negative); Protein Urine Neg (Negative); Urine Appearance SL Hazy (CLEAR); Urobilinogen Urine Norm (Negative); pH Urine 5 (5-7)
[2021-03-13 20:34] LABS: Add Urine Culture? Yes; Bacteria Urine 3+ /hpf; Renal Epithelial Cells Urine 0-2 /hpf; WBC Urine 15-25 /hpf (0-5)
[2021-03-13] MEDS: BuSPIRONE 10 mg Tablet PO (20:50)
[2021-03-14] VITALS (119 sets, daily range): BP systolic 55–161; BP diastolic 38–101; PULSE 0–119; RESP 18–57; TEMP 36.6–39.6; O2SAT 86–99
--- NOTE | 2021-03-14 01:22 | PC.NURSE ---
Patient heart rate slowing and then returning to 90's. Respirations reading in the 30's and 40's. Patient talking in his sleep on assessment. Respirations at this time approximately 20. Able to respond however, quickly went back to sleep. Will continue to monitor.
--- NOTE | 2021-03-14 01:54 | XRR_ITS ---
PROCEDURE INFORMATION: Exam: XR Chest Exam date and time: 03/14/2021 1:54 AM Age: 80 years old Clinical indication: Device placement; Ett placement (vent status); Patient HX: Check S/P ett placement post code blue. TECHNIQUE: Imaging protocol: XR of the chest. Views: 1 view. COMPARISON: CR XR chest 1V portable [id number] 03/13/2021 11:20 AM FINDINGS: Tubes, catheters and devices: Endotracheal tube in good position. Lungs: Bibasilar opacities which could be secondary to atelectasis or pneumonia. Pleural spaces: Unremarkable. No pleural effusion. No pneumothorax. Heart/Mediastinum: Unremarkable. No cardiomegaly. Bones/joints: Stable calcifications in the right glenohumeral joint. XR/XR chest 1V portable [id number] IMPRESSION: 1. Bibasilar opacities which could be secondary to atelectasis or pneumonia. 2. Endotracheal tube in good position.
[2021-03-14 02:06] LABS: Hematocrit 40.4 % (42.0-52.0); Hemoglobin 12.3 g/dL (11.7-16.6); Mean Corpuscular HGB Conc 30.4 g/dL (30.0-36.0); Mean Corpuscular Hemoglobin 31.1 pg (28.0-34.0); Mean Corpuscular Volume 102.3 fl (80-94); Mean Platelet Volume 10.1 fL (7.4-10.4); Platelet Count 77 10^3/cmm (130-400); Red Blood Count 3.95 10^6/uL (4.1-5.3); Red Cell Distribution Width 13.7 % (12.1-15.1); White Blood Count 2.9 10^3/uL (4.0-10.0)
--- NOTE | 2021-03-14 02:06 | ED_ITS ---
HPI - Chest Pain General: Chief Complaint: Chest Pain Stated Complaint: CHEST PAIN Time Seen by Provider: 03/13/21 10:51 History of Present Illness: Pain location: substernal and left chest Quality: tightness, heaviness and similar to prior GA Relieving factors: nitroglycerin and rest Exacerbating factors: exertion PFSH ED PFSH: Medical History Gross hematuria History of abdominal aortic aneurysm Recurrent UTI Urinary retention Surgical History H/O cataract extraction H/O hernia repair History of appendectomy History of back surgery Family History Mother , at age 82 Alzheimer disease Father , at age 62 Cancer Other CAD (coronary artery disease) Diabetes Social History Smoking and tobacco status: current every day smoker smokeless tobacco Second hand smoke exposure: No Smoking risk assessment/counseling performed?: No Alcohol intake: never Marital status: Current occupational status: retired History of recent travel: No Procedures Intubation sedative: none Laryngoscope: Paty ET Tube Size: 8 ET Tube Uncuffed: No Tube Secured Depth (cm): 26 Tube Placement Confirmation: visualized tube passing through cords, equal breath sounds bilaterally, no breath sounds over epigastrium and confirmation by capnometry Intubation Complications: none Course Vital Signs: Vital signs: Vital Signs Temperature 98 F 03/14/21 00:00 Pulse Rate 74 03/14/21 00:00 Respiratory Rate 27 H 03/14/21 00:00 Blood Pressure 146/78 03/14/21 00:00 Pulse Oximetry 92 03/13/21 23:19 MDM - Chest Pain MDM Narrative: Medical decision making narrative: I responded to CODE BLUE to cardiac stepdown. Dr. Noguera was in the room running the code. Patient was being bagged valve ventilated when I arrived. I did intubate patient during the code 8 oh tube. Visualize the tube going through the cords had good color change on capnography. Lab Data: Labs: Lab Results 03/13/21 03/13/21 03/13/21 11:01 11:01 11:01 WBC 9.0 10^3/uL 10^3/ uL (4.0-10.0) RBC 4.19 10^6/uL 10^6 /uL (4.1-5.3) Hgb 13.2 g/dL g/dL (11.7-16.6) Hct 40.5 % L % (42.0-52.0) MCV 96.7 fl H fl (80-94) MCH 31.5 pg pg (28.0-34.0) MCHC 32.6 g/dL g/dL (30.0-36.0) RDW 13.7 % % (12.1-15.1) Plt Count 142 10^3/cmm 10^3 /cmm (130-400) MPV 10.5 fL H fL (7.4-10.4) Neut % (Auto) 75.1 % % Lymph % (Auto) 10.7 % % [place] % (Auto) 11.2 % % Eos % (Auto) 2.2 % % Baso % (Auto) 0.4 % % Neut # (Auto) 6.74 10^3/uL 10^3 /uL (1.8-7.7) Lymph # (Auto) 1.0 10^3/uL 10^3/ uL (0.8-4.8) [place] # (Auto) 1.0 10^3/uL H 10^ 3/uL (0.2-0.9) Eos # (Auto) 0.2 10^3/uL 10^3/ uL (0.0-0.8) Baso # (Auto) 0.0 10^3/uL 10^3/ uL (0.0-0.1) Nucleated RBC % (a uto) 0 % % Nucleated RBCs # 0.0 /100WBC /100W BC Sodium 138 mmol/L mmol/L (136-145) Potassium 4.4 mmol/L mmol/L (3.5-5.1) Chloride 102 mmol/L mmol/L (98-107) Carbon Dioxide 25 mmol/L mmol/L (22-29) Anion Gap 15.4 (5-19) BUN 20 mg/dL mg/dL (8-23) Creatinine 0.9 mg/dL mg/dL (0.7-1.2) GFR Calculation Not Reportable Glucose 106 mg/dL mg/dL (65-115) Calculated Osmolal ity 289 mOsm/kg mOsm/ kg (285-295) Calcium 9.2 mg/dL mg/dL (8.5-10.5) Total Bilirubin 0.3 mg/dL mg/dL (0.15-1.2) AST 22 U/L U/L (0-40) ALT 32 U/L U/L (0-41) Alkaline Phosphata se 92 IU/L IU/L (40-130) Creatine Kinase 70 U/L U/L (39-308) Troponin T Baselin e 30 ng/L H ng/L (0-15) Troponin T 120 Min [place] Delta Troponin T C-Reactive Protein NT-Pro-B Natriuret Pep 647 pg/mL H pg/mL (0-450) Total Protein 5.8 g/dL L g/dL (6.6-8.7) Albumin 3.8 g/dL g/dL (3.5-5.2) Globulin 2.0 g/dL g/dL (1.3-4.6) Procalcitonin Urine Color Urine Appearance Urine pH Ur Specific Gravit y Urine Protein Urine Glucose (UA) Urine Ketones Urine Blood Urine Nitrate Urine Bilirubin Urine Urobilinogen Ur Leukocyte Daphne ase Urine RBC Urine WBC Ur Squamous Epith Cells Ur Renal Epithelia l Cell Amorphous Sediment Urine Bacteria SARS-CoV-2 Ag (Rap id) 03/13/21 03/13/21 03/13/21 11:01 13:10 13:32 WBC RBC Hgb Hct MCV MCH MCHC RDW Plt Count MPV Neut % (Auto) Lymph % (Auto) [place] % (Auto) Eos % (Auto) Baso % (Auto) Neut # (Auto) Lymph # (Auto) [place] # (Auto) Eos # (Auto) Baso # (Auto) Nucleated RBC % (a uto) Nucleated RBCs # Sodium Potassium Chloride Carbon Dioxide Anion Gap BUN Creatinine GFR Calculation Glucose Calculated Osmolal ity Calcium Total Bilirubin AST ALT Alkaline Phosphata se Creatine Kinase Troponin T Baselin e Troponin T 120 Min [place] 25.90 ng/L H ng/L (0-15) Delta Troponin T -4.10 ABS# L ABS# (0-10) C-Reactive Protein 121.4 mg/L H mg/L (0.0-4.9) NT-Pro-B Natriuret Pep Total Protein Albumin Globulin Procalcitonin 0.13 ng/mL ng/mL (0-0.5) Urine Color Straw (Yellow) Urine Appearance Sl hazy (CLEAR) Urine pH 5 (5-7) Ur Specific Gravit y 1.010 (1.005-1.030) Urine Protein Neg (Negative) Urine Glucose (UA) Norm (Normal) Urine Ketones Negative (Negative) Urine Blood 2+ H (Negative) Urine Nitrate Negative (Negative) Urine Bilirubin Neg (Negative) Urine Urobilinogen Norm mg/dL mg/dL (Negative) Ur Leukocyte Daphne ase 1+ H (Negative) Urine RBC Not Reportable Urine WBC 15-25 /hpf H /hpf (0-5) Ur Squamous Epith Cells Not Reportable Ur Renal Epithelia l Cell 0-2 /hpf /hpf Amorphous Sediment Not Reportable Urine Bacteria 3+ /hpf H /hpf (NONE) SARS-CoV-2 Ag (Rap id) 03/13/21 13:34 WBC RBC Hgb Hct MCV MCH MCHC RDW Plt Count MPV Neut % (Auto) Lymph % (Auto) [place] % (Auto) Eos % (Auto) Baso % (Auto) Neut # (Auto) Lymph # (Auto) [place] # (Auto) Eos # (Auto) Baso # (Auto) Nucleated RBC % (a uto) Nucleated RBCs # Sodium Potassium Chloride Carbon Dioxide Anion Gap BUN Creatinine GFR Calculation Glucose Calculated Osmolal ity Calcium Total Bilirubin AST ALT Alkaline Phosphata se Creatine Kinase Troponin T Baselin e Troponin T 120 Min [place] Delta Troponin T C-Reactive Protein NT-Pro-B Natriuret Pep Total Protein Albumin Globulin Procalcitonin Urine Color Urine Appearance Urine pH Ur Specific Gravit y Urine Protein Urine Glucose (UA) Urine Ketones Urine Blood Urine Nitrate Urine Bilirubin Urine Urobilinogen Ur Leukocyte Daphne ase Urine RBC Urine WBC Ur Squamous Epith Cells Ur Renal Epithelia l Cell Amorphous Sediment Urine Bacteria SARS-CoV-2 Ag (Rap id) Negative (Negative) Discharge Plan Discharge Admit Provider: Presley Robbins Coding Level of Care Code ED Marketing Underwriter for [facility] Fwd
--- NOTE | 2021-03-14 02:10 | PC.NURSE ---
At approximately 0150, pulse rate noted on monitor to be dropping to 20's. heading up machine operator and myself went to examine patient and monitor starting reading asystole. CPR started and Code called. Code team arrived. Patient transferred to ICU. Notified at this time and notified ICU that she would like a call when he is stabilized.
[2021-03-14] MEDS: EPINEPHrine 2.5 MG in sodium chloride 0.9% 250 ML 6.06 MG IV (02:13)
[2021-03-14 02:19] LABS: ABG PCO2 47.6 mmHg (35-45); ABG PH Result 7.19 (7.35-7.45); Alveolar-Arterial Oxygen Gradi 3.5 mmHg (5-10); Arterial Blood Gas Hematocrit 37.6 % (42-52); Base Excess ABG -10.2 mmol/L (-2.0-2.0); Blood Gas Operator Identificat HARKR; Blood Gas Sample Site Brachial, left; Blood Gas Sample Type Arterial; Carboxyhemoglobin 1.1 %THgb (0.4-20.1); HCO3 ABG 17.9 mmol/L (22-26); HGB O2 Sat 85.8 % (95-100); Ionized Calcium Level - ABG 1.2 mmol/L (1.1-1.4); Oxygen Device AMBU; Oxygen Saturation ABG 87.6; PO2 ABG 65.6 mmHg (80.0-100.0); Potassium Level - ABG 4.2 mmol/L (3.5-5.0); Total Hemoglobin 12.3 g/dL (14-18)
[2021-03-14 02:24] LABS: Troponin(5th) Baseline 59 ng/L (0-15)
[2021-03-14 02:29] LABS: Slide Review Slide Review Perform
[2021-03-14 02:30] LABS: Absolute Segmented Neutrophil 1.2 10/cmm (1.6-7.1); Band Neutrophils Absolute 0.9 10^3/cmm (0.0-1.2); Segmented Neutrophils 41 %; Total Cells Counted 100 (0-100)
[2021-03-14 02:31] LABS: Absolute Neutrophil 2.1 10^3/cmm (1.4-6.5); Eosinophils 1 %; Lymphocytes 31 %; Lymphocytes Absolute 0.9 10^3/cmm (1.2-3.4); Platelet Estimate Decreased (Normal); Toxic Granulation 1+; Toxic Vacuolation 1+
[2021-03-14 02:39] LABS: Glucose Point of Care 127 mg/dL (70-110)
[2021-03-14 02:39] LABS: Alanine Aminotransferase 104 U/L (0-41); Albumin Level 3.1 g/dL (3.5-5.2); Alkaline Phosphatase 196 IU/L (40-130); Anion Gap 19.7 (5-19); Aspartate Amino Transferase 103 U/L (0-40); Blood Urea Nitrogen 28 mg/dL (8-23); Calcium 8.6 mg/dL (8.5-10.5); Carbon Dioxide 19 mmol/L (22-29); Chloride 106 mmol/L (98-107); Globulin 2.2 g/dL (1.3-4.6); Glucose 144 mg/dL (65-115); Magnesium 2.3 mg/dL (1.7-2.3); Osmolality Calculated 298 mOsm/kg (285-295); Potassium 4.7 mmol/L (3.5-5.1); Sodium 140 mmol/L (136-145); Total Bilirubin 0.7 mg/dL (0.15-1.2); Total Protein 5.3 g/dL (6.6-8.7)
[2021-03-14 02:40] LABS: NT Pro B Type Natriuretic Pept 1172 pg/mL (0-450); Thyroid Stimulating Hormone 9.94 uIU/mL (0.27-4.20)
[2021-03-14] MEDS: sodium chloride 0.9% 1,000 ML 999 ML IV ×4 (03:32→06:10)
[2021-03-14] MEDS: sodium chloride 0.9% 500 ML IV (03:34)
[2021-03-14 03:42] LABS: ABG PCO2 52.7 mmHg (35-45); Alveolar-Arterial Oxygen Gradi 77.1 mmHg (5-10); Arterial Blood Gas Hematocrit 33.2 % (42-52); Base Excess ABG -10.3 mmol/L (-2.0-2.0); Blood Gas Operator Identificat JB; Blood Gas Sample Type Arterial; Blood Gas Tidal Volume 0.45; Carboxyhemoglobin 0.8 %THgb (0.4-20.1); HCO3 ABG 18.5 mmol/L (22-26); HGB O2 Sat 83.4 % (95-100); Ionized Calcium Level - ABG 1.2 mmol/L (1.1-1.4); Methemoglobin 0.2 % (0.4-1.5); Oxygen Device VENT; Oxygen Saturation ABG 84.2; PO2 ABG 60.9 mmHg (80.0-100.0); Potassium Level - ABG 4.6 mmol/L (3.5-5.0); Total Hemoglobin 10.8 g/dL (14-18)
[2021-03-14 03:44] LABS: ABG PH Result 7.15 (7.35-7.45)
--- NOTE | 2021-03-14 04:20 | PM.EVENT ---
Event Note Event Note: Faustino sofia was called at 1:40 AM when patient was noted to have sudden pulseless arrest- asystole on telemetery. CPR was started per ACLS protocol. Patient received chest compressions, was intubated by ERP Dr. Krause, received 3 pushes of epinephrine. At 1:52 PM, noted to have a pulse, sinus bradycardia with HR 48-50s. BP initially 99/56, MAP 72, then dropped to 72/50, at which point levophed was started. Patient transferred to ICU, additionally started on vasopressin and epinephrine due to persistent hypotension in addition to 2L IVF bolus. Central line placed right femoral with US guidance, single attempt, no complications. Femoral arterial line attempted x 2 however was unsuccessful. Patient remains obtunded, has not had any recovery in mentation thus far. Pupils B/L constricted, minimal reaction to light. Gross hematuria noted in She[place], Further doses of lovenox held for now, planned trasition to heparin drip once urine starts to clear up. CBC, CMP, troponins, ABG ordered. CXR taken to confirm position of ETT. updated, patient critical Event Notes Attestations Time Spent in Patient Care: Greater than 35 minutes 90 minutes of critical care time spent in patient care
--- NOTE | 2021-03-14 04:25 | XRR_ITS ---
PROCEDURE INFORMATION: Exam: XR Chest Exam date and time: 03/14/2021 4:25 AM Age: 80 years old Clinical indication: Device placement; Ng tube; Patient HX: Check S/P og placement. ; Additional info: Og tube placement TECHNIQUE: Imaging protocol: XR of the chest. Views: 1 view. COMPARISON: CR (CHEST, ) 03/14/2021 2:05 AM FINDINGS: Tubes, catheters and devices: Orogastric tube in good position. Endotracheal tube in good position. Lungs: Stable bibasilar opacities. Pleural spaces: Stable small bilateral pleural effusions. Heart/Mediastinum: Unremarkable. No cardiomegaly. Bones/joints: Unremarkable. XR/XR chest 1V portable [id number] IMPRESSION: Orogastric tube in good position.
--- NOTE | 2021-03-14 04:31 | PM.ACPR ---
Procedure/Consent Time out: Time Out Performed: Yes Consent: Consent for Procedure: Emergency procedure Procedure Narrative: right femoral central line placed under USG guidance. single attempt. no complications. Acute Procedures Epistaxis Control: Time out performed: Yes
[2021-03-14 04:35] LABS: Troponin 5 2HR 79.51 ng/L (0-15)
[2021-03-14] MEDS: EPINEPHrine 2.5 MG in sodium chloride 0.9% 250 ML 60.6 MG IV ×3 (04:43→08:18)
--- NOTE | 2021-03-14 04:50 | PC.PHAR ---
Pharmacokinetic dosing service Date: 03/14/21 Time: 0500 Objective: Patient: Sonia Castellon Floor: ICU-3 Age: 80 yo Serum creatinine: 1.6 mg/dL Height: 70.0 Inches Weight (kg): 90.718 Diagnosis: Relevant medical/social history: Cultures and sensitivities: Other labs: Assessment: IBW (kg): 73.00 Dosing wt(kg): 90.718 Estimated Creatinine clearance (ml/min): 38.0 CRCL method: Cockcroft and Gault using ibw(default). Drug selected: Vancomycin Loading dose (mg): 0 Vd (liters): 81.6 (factor used: 0.9 L/kg) Josias (hr-1): 0.036 Half life (hrs): 19.25 Recommended dose: 1500 mg Interval: 24 hrs Infusion time (hrs): 1.5 Predicted peak (mcg/mL): 30.9 Predicted trough (mcg/mL): 13.75 Total body weight is being used for vancomycin dosing. Renal function is stable [ ] /unstable [ ] Recommendations: Give Vancomycin 1500 mg q 24 hrs with an expected Cpeak of 30.9 mcg/ml and an expected Ctrough of 13.75 mcg/ml Renal dosing of other antibiotics (review renal dosing of other medications and list guidelines here): Thank you for the consult, will continue to follow. Signature: Itzel Jones [facility] ED
[2021-03-14 04:54] LABS: Troponin 5 2HR Delta 20.51 ABS# (0-10)
[2021-03-14 05:09] LABS: Cortisol Random 44.73 ug/dL (2.47-19.5); Procalcitonin 20.01 ng/mL (0-0.5)
[2021-03-14 05:19] LABS: C Reactive Protein 85.8 mg/L (0.0-4.9)
[2021-03-14] MEDS: vancomycin 1,500 MG/300 ML PIGGYBACK 200 MG IV (05:27)
--- NOTE | 2021-03-14 05:31 | PC.NURSE ---
Code Event: Faustino sofia called over head to CSU, this nurse responded to code. Upon entering room CSU nurses had initiated CPR, ICU and ER staff took over compressions. Dr. South was at bedside along with Dr. Krause. 0140 Compressions started 0147 0 pulse, asystole 0149 Epi in, finger stick blood sugar 127 0150 PEA 0 Pulse 0152 Epi pulse check, pulse ranging from 76-52 0153 pulse 90 0156 BP 96/59 0157 BP 63/46 Pulse 108 Levophed started 0200 Transferring patient to ICU 0213 BP 57/40 Pulse 111 0218 Vasopressin started. Patient remains in ICU and is maxed out on 3 pressors. Family is at bedside. Patient is posturing at this time and has been since code event. Vent on 100% FIO2
[2021-03-14 05:32] LABS: ABG PCO2 44.9 mmHg (35-45); ABG PH Result 7.21 (7.35-7.45); Arterial Blood Gas Hematocrit 32.8 % (42-52); Base Excess ABG -9.6 mmol/L (-2.0-2.0); Blood Gas Allen Test Pos; Blood Gas Operator Identificat JB; Blood Gas Sample Site Brachial, left; Blood Gas Sample Type Arterial; HCO3 ABG 17.9 mmol/L (22-26); PO2 ABG 76.6 mmHg (80.0-100.0)
[2021-03-14 05:34] LABS: Blood Gas Tidal Volume 0.45; Oxygen Device VENT
--- NOTE | 2021-03-14 06:59 | ECG_ITS ---
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 Measurements Intervals [place] Rate: 101 P: 267 [place]: 193 QRS: 6 QRSD: 134 T: 46 QT: 325 QTc: 423 Interpretive Statements SINUS TACHYCARDIA INTRAVENTRICULAR CONDUCTION DELAY [130+ ms QRS DURATION] Compared to ECG 03/14/2021 11:02:20 Intraventricular conduction delay now present Electronically Signed On 03-14-2021 23:32:47 CDT by Serge Sevilla M.D. [id number]
[2021-03-14] MEDS: clopidogrel 300 mg Tablet PO (07:17)
[2021-03-14] MEDS: sodium bicarbonate 8.4% 1 mEq/mL 50mL Syr 50 MEQ IVP (07:17)
[2021-03-14] MEDS: DOBUTamine drip 500 MG/250 ML PREMIX 13.61 MG IV (07:38)
[2021-03-14] MEDS: norepinephrine 8 MG in dextrose 5 % 500 ML 190.5 MG IV ×3 (07:49→13:25)
[2021-03-14 08:16] LABS: Lactate (Lactic Acid level) 4.3 mmol/L (0.5-2.2); Troponin(5th) Baseline 150 ng/L (0-15)
--- NOTE | 2021-03-14 08:59 | ECG_ITS ---
[facility] Test Date: 2021-03-14 Pat Name: Sonia Castellon Department: Room: ICU03 Gender: Male [place] Worker: : 1940 Requested By: Presley Robbins Order Number: [id number] Beatrice MD: Serge Sevilla M.D. Measurements Intervals [place] Rate: 105 P: [place]: QRS: 0 QRSD: 131 T: 60 QT: 372 QTc: 493 Interpretive Statements Possible sinus tachycardia with a first-degree AV block RIGHT BUNDLE BRANCH BLOCK [120+ ms QRS DURATION, UPRIGHT V1, 40+ ms S IN I/aVL/V4/V5/V6] CRITICAL TEST RESULT Compared to ECG 03/13/2021 13:36:55 Right bundle-branch block now present Sinus rhythm no longer present First degree AV block no longer present Intraventricular conduction delay no longer present Myocardial infarct finding no longer present Electronically Signed On 03-14-2021 23:49:43 CDT by Serge Sevilla M.D. [id number]
[2021-03-14] MEDS: allopurinol 300 mg Tablet PO (09:03)
[2021-03-14] MEDS: donepezil 5 MG Tablet 10 MG PO (09:03)
[2021-03-14] MEDS: atorvastatin 40 mg Tablet 20 MG PO (09:03)
[2021-03-14] MEDS: ascorbic acid 500 mg Tablet 1000 MG PO ×2 (09:03→17:25)
[2021-03-14] MEDS: aspirin 81 mg Chew Tablet PO (09:03)
[2021-03-14] MEDS: BuSPIRONE 10 mg Tablet PO (09:03)
[2021-03-14] MEDS: lamoTRIgine 100 mg Tablet PO ×2 (09:03→17:25)
--- NOTE | 2021-03-14 10:01 | PC.CHAP ---
Pastoral Care Encounter/Spiritual Assessment Type of Contact [] Declined horticulture instructor visit [] Patient/Family/Request visit [] Outpatient visit [] Follow-up visit [] Physician referral [] Code/Alert [x] Routine visit [] Staff referral [] Actively dying [] Patient sleeping [x] Family support [] [] Out of room [] Palliative care [] [] Receiving care in room [] Pre-surgical visit [] Trauma [] Long length of stay [x] ICU visit [x] Other: vent Relational/Emotional Strength [] Patient feels connected with others/family/visitors/staff [] Distress [] Loneliness/isolation [] Abandonment Spirituality of Patient [] Person of Crystal [] Attends Anabaptist of their Crystal [] Believes in Prayer [] Reads Bible or Presybeterian materials [] There are Spiritual issues to be addressed Pile Trimmer Interventions [x] Prayer [x] Active listening [x] Non-anxious presence [x] Spiritual/emotional support [] Crisis/trauma care [] Spiritual counseling [] Bereavement support [] Provided bereavement packet [] Provided Bible/devotional materials [] Provided toy/stuffed animal, coloring book to patient or family member [] Provided Communion [] Anointing/[place] [] Salvation [x] Completed spiritual assessment [] Other: Impact on Illness or Injury [] Angry [] Fearful [] Anxious [] Often cries [] Exhaustion [] Unable to work [] Unable to attend congregational [] Unable to walk/stand [] Unable to read [] Unable to drive [] Unable to eat/drink [] Unable to sleep [] Unable to be with family [] Patient intubated [] Other: Summary horticulture instructor called in for family at 4:45 am... code blue.. sat with and neighbor for 3 hours... patients stats improving but has not regained consciousness.. continue to pray for patient and family... no family local... Time spent with patient 3 hrs
[2021-03-14 10:07] LABS: Partial Thromboplastin Time 60.8 SECONDS (23.9-36.7)
[2021-03-14 10:13] LABS: Troponin 5 2HR 182.4 ng/L (0-15); Troponin 5 2HR Delta 32.4 ABS# (0-10)
--- NOTE | 2021-03-14 10:20 | P.PN_ITS ---
Subjective Subjective: Interval history: Patient apparently went into pulseless electrical activity last night. He had almost 10 minutes of CPR and endotracheal intubation.. Currently he is on FiO2 100%. Medications: Reviewed: Yes Medication Review Details: Current Medications Acetaminophen (Acetaminophen 325 Mg Tablet) 650 mg PO Q6H PRN PRN Reason: Mild/Mod Pain Or Temp >/= 101 Allopurinol (Allopurinol 300 Mg Tablet) 300 mg PO DAILY [facility] Last Admin: 03/14/21 09:03 Dose: 300 mg Documented by: Ascorbic Acid (Ascorbic Acid 500 Mg Tablet) 1,000 mg PO BID [facility] Last Admin: 03/14/21 09:03 Dose: 1,000 mg Documented by: Aspirin (Aspirin 81 Mg Chew Tablet) 81 mg PO DAILY [facility] Last Admin: 03/14/21 09:03 Dose: 81 mg Documented by: Atorvastatin Calcium (Atorvastatin 40 Mg Tablet) 20 mg PO DAILY [facility] Last Admin: 03/14/21 09:03 Dose: 20 mg Documented by: Bisacodyl (Bisacodyl 5 Mg Tablet) 10 mg PO DAILY PRN; Protocol PRN Reason: Constipation (see protocol) Buspirone HCl (Buspirone 10 Mg Tablet) 10 mg PO TID [facility] Last Admin: 03/14/21 09:03 Dose: 10 mg Documented by: Colchicine (Colchicine 0.6 Mg Tablet) 0.6 mg PO DAILY PRN PRN Reason: gout Donepezil HCl (Donepezil 5 Mg Tablet) 10 mg PO DAILY [facility] Last Admin: 03/14/21 09:03 Dose: 10 mg Documented by: Finasteride (Finasteride 5 Mg Tablet) 5 mg PO DAILY [facility] Last Admin: 03/14/21 08:39 Dose: Not Given Documented by: Fluticasone Propionate (Fluticasone Nasal [place] 16gm Btl) 1 spray INTRANASAL DAILY [facility] Last Admin: 03/14/21 09:08 Dose: Not Given Documented by: Heparin Sodium (Beef Lung) (Heparin 5,000 Unit/Ml Inj 1 Ml) 0 unit IV PRN PRN; Protocol PRN Reason: Heparin weight-base protocol Fentanyl 1,000 mcg/ Sodium (Chloride) 100 mls @ 0 mls/hr IV .Q0M [facility]; Protocol Last Titration: 03/14/21 09:50 Dose: 100 mcg/hr, 10 mls/hr Documented by: Propofol (Diprivan) 1,000 mg in 100 mls @ 0 mls/hr IV .Q0M ERASTO; Protocol Norepinephrine Bitartrate 4 mg (/ Dextrose) 254 mls @ 0 mls/hr IV .Q0M ERASTO; Protocol Last Titration: 03/14/21 07:30 Dose: Infused Documented by: Vasopressin 40 unit/ Sodium (Chloride) 40 mls @ 0.03 mls/min IV CONT ERASTO Last Admin: 03/14/21 03:44 Dose: Not Given Documented by: Vasopressin 100 unit/ Sodium (Chloride) 100 mls @ 0 mls/hr IV .Q0M ERASTO; Protocol Last Titration: 03/14/21 03:23 Dose: 0.1 unit/min, 6 mls/hr Documented by: Epinephrine HCl 2.5 mg/ Sodium (Chloride) 252.5 mls @ 0 mls/hr IV .Q0M ERASTO; Protocol Last Admin: 03/14/21 08:18 Dose: 10 mcg/min, 60.6 mls/hr Documented by: Sodium Chloride (Sodium Chloride 0.9%) 500 mls @ 5 mls/hr IV .Q24H ERASTO Last Admin: 03/14/21 03:34 Dose: 5 mls/hr Documented by: Vancomycin/PEG/NADA/Lysine/Water (Vancocin) 1,500 mg in 300 mls @ 200 mls/hr IV Q24H ERASTO Last Infusion: 03/14/21 07:11 Dose: Infused Documented by: Norepinephrine Bitartrate 8 mg (/ Dextrose) 508 mls @ 0 mls/hr IV .Q0M ERASTO; Pr otocol Last Admin: 03/14/21 07:49 Dose: 50 mcg/min, 190.5 mls/hr Documented by: Dobutamine HCl/Dextrose (Dobutamine Drip) 500 mg in 250 mls @ 0 mls/hr IV .Q0M ERASTO; Protocol Last Titration: 03/14/21 08:21 Dose: 15 mcg/kg/min, 40.82 mls/hr Documented by: Heparin Sodium/Sodium Chloride (Heparin Drip) 25,000 unit in 500 mls @ 0 mls/hr IV .Q0M ERASTO; Protocol Epinephrine HCl 5 mg/ Sodium (Chloride) 505 mls @ 0 mls/hr IV .Q0M ERASTO; Protocol Imipenem/Cilastatin Sodium 500 (mg/ Sodium Chloride) 100 mls @ 200 mls/hr IV Q8H [facility]; Protocol Lamotrigine (Lamotrigine 100 Mg Tablet) 100 mg PO BID [facility] Last Admin: 03/14/21 09:03 Dose: 100 mg Documented by: Magnesium Hydroxide (Magnesium Hydroxide 30 Ml Udc) 30 ml PO DAILY PRN; Protocol PRN Reason: Constipation (see protocol) Morphine Sulfate (Morphine 4 Mg/Ml Sdv 1 Ml) 2 mg IVP Q4H PRN PRN Reason: SEVERE PAIN Naloxone HCl (Naloxone 0.4 Mg/Ml Sdv) 0.1 mg IVP Q2M PRN PRN Reason: OPIATERV Non-Formulary Medication (Methenamine Hippurate) 1 gm PO BID [facility] Last Admin: 03/14/21 09:08 Dose: Not Given Documented by: Ondansetron HCl (Ondansetron 2 Mg/Ml Sdv 2 Ml) 4 mg IVP Q8H PRN PRN Reason: vomiting, or N/V if npo Pantoprazole Sodium (Pantoprazole Dr 40 Mg Tablet) 40 mg PO Q12H [facility] Last Admin: 03/14/21 03:47 Dose: Not Given Documented by: Tamsulosin HCl (Tamsulosin 0.4 Mg Capsule) 0.4 mg PO DAILY [facility] Last Admin: 03/14/21 08:39 Dose: Not Given Documented by: Vitals/I&O/Wt Last Vital Signs Temp 98 F 03/14/21 00:00 Pulse 97 03/14/21 04:25 Resp 45 H 03/14/21 09:11 BP 81/45 03/14/21 04:25 Pulse Ox 94 03/14/21 09:11 03/13/21 03/14/21 03/14/21 22:59 06:59 14:59 Intake Total 150 / 150 2443.802 / 2593.802 691.736 / 691.736 Output Total 500 / 500 Balance 150 / 150 1943.802 / 2093.802 691.736 / 691.736 Weight last 48 hrs Weight 200 lb Physical Exam Narrative: EXAM NARRATIVE: GENERAL: The patient is alert and oriented times three. Not in any acute distress. Hard of hearing HEENT: No significant pallor, icterus or lymphadenopathy. The pupils are symmetrical. Oral cavity: There are no mucous membrane lesions. NECK: Trachea appears to be central. No masses noted. No JVD or thyromegaly appreciated. No carotid bruit. RESPIRATORY: Chest is symmetrical. No intercostals muscle retraction or any accessory muscle activation. There is no chest wall tenderness. Breath sounds are heard bilaterally. Few coarse crackles at the base BREASTS: Deferred. HEART: The PMI could not be palpated. No other palpable precordial events. S1 and S2 are normal. No S3 or S4 heard. No pericardial rub or any click heard. ABDOMEN: No vessel pulsations or distention. No tenderness. No organomegaly appreciated. No abdominal bruit. Bowel sounds are normally heard. : Deferred. RECTAL: Deferred. LYMPHATIC: No lymphadenopathy noted in the neck or groin. EXTREMITIES: Trace to 1+ edema bilaterally with no cyanosis. Peripheral pulses are palpable but weak bilaterally. MUSCULOSKELETAL: No acute joint deformities or swelling SKIN: There are no significant scars or skin rash noted. NEUROPSYCHIATRIC: The patient is alert and oriented x3. Appears to be in a good mood. The higher functions are grossly within normal limits. No tremors or rigidity noted. Data : 03/15/21 04:15 03/15/21 04:15 Other Labs: Laboratory Last Values WBC 2.9 10^3/uL (4.0-10.0) L 03/14/21 02:00 RBC 3.95 10^6/uL (4.1-5.3) L 03/14/21 02:00 Hgb 12.3 g/dL (11.7-16.6) 03/14/21 02:00 Hct 40.4 % (42.0-52.0) L 03/14/21 02:00 MCV 102.3 fl (80-94) H D 03/14/21 02:00 MCH 31.1 pg (28.0-34.0) 03/14/21 02:00 MCHC 30.4 g/dL (30.0-36.0) D 03/14/21 02:00 RDW 13.7 % (12.1-15.1) 03/14/21 02:00 Plt Count 77 10^3/cmm (130-400) L D 03/14/21 02:00 MPV 10.1 fL (7.4-10.4) 03/14/21 02:00 Neut % (Auto) 75.1 % 03/13/21 11:01 Lymph % (Auto) Not Reportable 03/14/21 02:00 [place] % (Auto) Not Reportable 03/14/21 02:00 Eos % (Auto) 2.2 % 03/13/21 11:01 Baso % (Auto) 0.4 % 03/13/21 11:01 Neut # (Auto) 6.74 10^3/uL (1.8-7.7) 03/13/21 11:01 Lymph # (Auto) Not Reportable 03/14/21 02:00 [place] # (Auto) Not Reportable 03/14/21 02:00 Eos # (Auto) 0.2 10^3/uL (0.0-0.8) 03/13/21 11:01 Baso # (Auto) 0.0 10^3/uL (0.0-0.1) 03/13/21 11:01 Nucleated RBC % (auto) 0 % 03/13/21 11:01 Total Counted 100 (0-100) 03/14/21 02:00 Atypical Lymphs % 0.0 % (0-5) 03/14/21 02:00 Absolute Neutrophils 2.1 10^3/cmm (1.4-6.5) 03/14/21 02:00 Segmented Neutrophils 41 % 03/14/21 02:00 Abs Segm Neuts (Man) 1.2 10/cmm (1.6-7.1) L 03/14/21 02:00 Band Neutrophils 31.0 % 03/14/21 02:00 Abs Band Neuts (Man) 0.9 10^3/cmm (0.0-1.2) 03/14/21 02:00 Absolute Lymphocytes 0.9 10^3/cmm (1.2-3.4) L 03/14/21 02:00 Lymphocytes (Manual) 31 % 03/14/21 02:00 Monocytes (Manual) 0.0 % 03/14/21 02:00 Absolute Monocytes 0.0 10^3/cmm (0.1-0.6) L 03/14/21 02:00 Eosinophils (Manual) 1 % 03/14/21 02:00 Absolute Eosinophils 0.0 10^3/cmm (0.0-0.7) 03/14/21 02:00 Basophils (Manual) 0.0 % 03/14/21 02:00 Absolute Basophils 0.0 10^3/cmm (0.0-0.2) 03/14/21 02:00 Metamyelocytes 10.0 % 03/14/21 02:00 Nucleated RBCs 2.0 /100WBC (0-1) H 03/14/21 02:00 Nucleated RBCs # 0.0 /100WBC 03/13/21 11:01 Toxic Granulation 1+ H 03/14/21 02:00 Toxic Vacuolation 1+ H 03/14/21 02:00 Platelet Estimate Decreased (Normal) 03/14/21 02:00 APTT 60.8 SECONDS (23.9-36.7) H 03/14/21 09:25 Specimen Type Arterial 03/14/21 05:19 Sample Site Brachial, left 03/14/21 05:19 ABG pH 7.21 (7.35-7.45) L 03/14/21 05:19 ABG pCO2 44.9 mmHg (35-45) 03/14/21 05:19 ABG pO2 76.6 mmHg (80.0-100.0) L 03/14/21 05:19 ABG HCO3 17.9 mmol/L (22-26) L 03/14/21 05:19 ABG O2 Saturation 84.2 03/14/21 03:39 ABG Base Excess -9.6 mmol/L (-2.0-2.0) L 03/14/21 05:19 Samir Test Pos 03/14/21 05:19 A-a O2 Gradient 77.1 mmHg (5-10) H 03/14/21 03:39 Hematocrit 32.8 % (42-52) L 03/14/21 05:19 Hgb O2 Saturation 83.4 % (95-100) L 03/14/21 03:39 Carboxyhemoglobin 0.8 %THgb (0.4-20.1) 03/14/21 03:39 Methemoglobin 0.2 % (0.4-1.5) L 03/14/21 03:39 Total Hemoglobin 10.8 g/dL (14-18) L 03/14/21 03:39 Sodium 142.0 mmol/L (131-143) 03/14/21 03:39 Potassium 4.6 mmol/L (3.5-5.0) 03/14/21 03:39 Glucose 80.0 mg/dL (70-115) 03/14/21 03:39 Ionized Calcium 1.2 mmol/L (1.1-1.4) 03/14/21 03:39 O2 Delivery Device Vent 03/14/21 05:19 O2 Liters/Min 15.0 % 03/14/21 02:17 FiO2 100.0 % 03/14/21 05:19 Tidal Volume 0.45 03/14/21 05:19 PEEP 8.0 cmH20 03/14/21 05:19 Contract Negotiation Manager ID Rashawn 03/14/21 05:19 Sodium 140 mmol/L (136-145) 03/14/21 02:00 Potassium 4.7 mmol/L (3.5-5.1) 03/14/21 02:00 Chloride 106 mmol/L (98-107) 03/14/21 02:00 Carbon Dioxide 19 mmol/L (22-29) L 03/14/21 02:00 Anion Gap 19.7 (5-19) H 03/14/21 02:00 BUN 28 mg/dL (8-23) H 03/14/21 02:00 Creatinine 1.6 mg/dL (0.7-1.2) H 03/14/21 02:00 GFR Calculation Not Reportable 03/14/21 02:00 Glucose 144 mg/dL (65-115) H 03/14/21 02:00 POC Glucose 127 mg/dL (70-110) H 03/14/21 01:49 Calculated Osmolality 298 mOsm/kg (285-295) H 03/14/21 02:00 Lactate 4.3 mmol/L (0.5-2.2) H* 03/14/21 07:09 Calcium 8.6 mg/dL (8.5-10.5) 03/14/21 02:00 Phosphorus 5.0 mg/dL (2.5-4.5) H 03/14/21 02:00 Magnesium 2.3 mg/dL (1.7-2.3) 03/14/21 02:00 Total Bilirubin 0.7 mg/dL (0.15-1.2) 03/14/21 02:00 AST 103 U/L (0-40) H 03/14/21 02:00 ALT 104 U/L (0-41) H 03/14/21 02:00 Alkaline Phosphatase 196 IU/L (40-130) H 03/14/21 02:00 Creatine Kinase 70 U/L (39-308) 03/13/21 11:01 Troponin T Baseline 150 ng/L (0-15) H* 03/14/21 07:09 Troponin T 120 Minute 182.4 ng/L (0-15) H 03/14/21 09:25 Delta Troponin T 32.4 ABS# (0-10) H* 03/14/21 09:25 Troponin T Hi Sens 6Hr 28.17 ng/L (0-15) H 03/13/21 16:27 Troponin T Hi Sens 6Hr Delta -1.83 ng/L (0-12) L 03/13/21 16:27 C-Reactive Protein 85.8 mg/L (0.0-4.9) H 03/14/21 03:53 NT-Pro-B Natriuret Pep 1172 pg/mL (0-450) H 03/14/21 02:00 Total Protein 5.3 g/dL (6.6-8.7) L 03/14/21 02:00 Albumin 3.1 g/dL (3.5-5.2) L 03/14/21 02:00 Globulin 2.2 g/dL (1.3-4.6) 03/14/21 02:00 Procalcitonin 20.01 ng/mL (0-0.5) H 03/14/21 03:53 TSH 9.94 uIU/mL (0.27-4.20) H 03/14/21 02:00 Random Cortisol 44.73 ug/dL (2.47-19.5) H 03/14/21 03:53 Urine Color Straw (Yellow) 03/13/21 13:32 Urine Appearance Sl hazy (CLEAR) 03/13/21 13:32 Urine pH 5 (5-7) 03/13/21 13:32 Ur Specific [place] 1.010 (1.005-1.030) 03/13/21 13:32 Urine Protein Neg (Negative) 03/13/21 13:32 Urine Glucose (UA) Norm (Normal) 03/13/21 13:32 Urine Ketones Negative (Negative) 03/13/21 13:32 Urine Blood 2+ (Negative) H 03/13/21 13:32 Urine Nitrate Negative (Negative) 03/13/21 13:32 Urine Bilirubin Neg (Negative) 03/13/21 13:32 Urine Urobilinogen Norm mg/dL (Negative) 03/13/21 13:32 Ur Leukocyte Esterase 1+ (Negative) H 03/13/21 13:32 Urine RBC Not Reportable 03/13/21 13:32 Urine WBC 15-25 /hpf (0-5) H 03/13/21 13:32 Ur Squamous Epith Cells Not Reportable 03/13/21 13:32 Ur Renal Epithelial Cell 0-2 /hpf 03/13/21 13:32 Amorphous Sediment Not Reportable 03/13/21 13:32 Urine Bacteria 3+ /hpf (NONE) H 03/13/21 13:32 SARS-CoV-2 Ag (Rapid) Negative (Negative) 03/13/21 13:34 Micro: Microbiology 03/13/21 13:32 Bacterial Antigens - Final Urine,Clean Catch 03/13/21 16:35 Blood Culture - Preliminary Blood SPECIMEN COLLECTED 03/13/21 16:27 Blood Culture - Preliminary Blood SPECIMEN COLLECTED EKG 2: My Interpretation: Sinus tachycardia with rate of 103/min. Incomplete right bundle branch block. QTC of 444. No acute ST-T changes A&P Assessment and plan (1) Hypotension: The etiology of the hypotension is not clear. The LV ejection fraction is around 50%. Sepsis, ischemia, PE are considerations. COVID- 19 was negative. The patient is on multiple vasopressors. We will try to gradually taper off these as the blood pressure improves. Status: Acute Qualifiers: Hypotension type: unspecified hypotension type Qualified Code(s): I95.9 - Hypotension, unspecified (2) Acute respiratory failure with hypoxia: The etiology is not clear. His EKG did not show any significant ischemic changes. Troponin T was found to be elevated with significant delta. Review of the CTA from yesterday revealed no evidence of PE. Possibility of pneumonia causing respiratory failure / congestive heart failure are considerations. Currently the patient on multiple vasopressors. He was started on heparin because of the kidney injury Status: Acute (3) PEA (Pulseless electrical activity): As above Status: Acute (4) Chest pain: Patient chest pain is mostly pleuritic in nature. Most likely the underlying bilateral lower lobe pneumonia is causing the pain. The currently elevated troponin T, may suggest a non-ST elevation myocardial infarction. Status: Acute Qualifiers: Chest pain type: other chest pain Qualified Code(s): R07.89 - Other chest pain (5) Atherosclerotic heart disease of [place] coronary artery with other forms of angina pectoris: Patient has a history of atherosclerotic heart disease and previous PCI. NSTEMI is a consideration. Patient may be started on Plavix Status: Acute (6) Pneumonia of both lower lobes: The etiology of the pneumonia is not known at this point. 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 May continue on the current medications Status: Acute (8) Benign essential hypertension with target blood pressure below 140/90: Currently normotensive. May continue on the current medications. Status: Acute (9) Dyslipidemia: May continue on the lipid-lowering agent. Status: Acute Additional A&P Information The patient is condition is currently very critical. Prognosis is guarded. is at the bedside and is aware of the current status. 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
[2021-03-14] MEDS: EPINEPHrine 5 MG in sodium chloride 0.9% 500 ML 60.6 MG IV ×2 (10:24→17:25)
--- NOTE | 2021-03-14 10:32 | PC.OT ---
OT EVALUATION ORDERS RECEIVED. HOLD OT EVALUATION AT THIS TIME PATIENT CODED EARLIER THIS MORNING AND IS CURRENTLY ON VENT.
[2021-03-14 10:41] LABS: NT Pro B Type Natriuretic Pept 5645 pg/mL (0-450)
[2021-03-14] MEDS: lidocaine 2% Urojet 20 mL TOPICAL (10:50)
[2021-03-14] MEDS: heparin drip 25,000 UNIT/500 ML PREMIX 25.4 UNIT IV (12:20)
[2021-03-14 12:22] LABS: Mean Corpuscular HGB Conc 31.3 g/dL (30.0-36.0); Mean Corpuscular Hemoglobin 31.7 pg (28.0-34.0); Mean Corpuscular Volume 101.6 fl (80-94); Mean Platelet Volume 11.1 fL (7.4-10.4); Platelet Count 64 10^3/cmm (130-400); Red Blood Count 3.15 10^6/uL (4.1-5.3); Red Cell Distribution Width 14.2 % (12.1-15.1); White Blood Count 16.3 10^3/uL (4.0-10.0)
--- NOTE | 2021-03-14 12:59 | ECG_ITS ---
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 Measurements Intervals [place] Rate: 103 P: 241 RI: 201 QRS: 1 QRSD: 128 T: 58 QT: 339 QTc: 444 Interpretive Statements SINUS TACHYCARDIA POSSIBLE RIGHT VENTRICULAR CONDUCTION DELAY [RSR (QR) IN V1/V2] ABNORMAL RHYTHM ECG Compared to ECG 03/14/2021 09:09:24 Right bundle-branch block no longer present Electronically Signed On 03-14-2021 23:49:50 CDT by Serge Sevilla M.D. [id number]
[2021-03-14] MEDS: acetaminophen 325 mg Tablet 650 MG PO (13:11)
[2021-03-14] MEDS: DOBUTamine drip 500 MG/250 ML PREMIX 40.82 MG IV (13:24)
[2021-03-14 13:29] LABS: Slide Review Slide Review Perform
[2021-03-14 13:41] LABS: Troponin 5 6HR 209.6 ng/L (0-15)
[2021-03-14 13:42] LABS: Troponin 5 6HR Delta 59.6 ng/L (0-12)
[2021-03-14 14:01] LABS: Coronavirus Test Green County Not Detected
[2021-03-14] MEDS: acetaminophen 1,000 MG/100 ML PIGGYBACK 400 MG IV ×2 (14:47→22:33)
[2021-03-14] MEDS: norepinephrine 8 MG in dextrose 5 % 500 ML 285.75 MG IV (15:37)
[2021-03-14 15:49] LABS: ABG PCO2 39.3 mmHg (35-45); ABG PH Result 7.21 (7.35-7.45); Alveolar-Arterial Oxygen Gradi 58.4 mmHg (5-10); Base Excess ABG -11.7 mmol/L (-2.0-2.0); Blood Gas Allen Test Pos; Blood Gas Operator Identificat CAK; Blood Gas Sample Site Brachial, left; Blood Gas Sample Type Arterial; Blood Gas Tidal Volume 0.45; Carboxyhemoglobin 0.5 %THgb (0.4-20.1); HCO3 ABG 15.5 mmol/L (22-26); HGB O2 Sat 93.2 % (95-100); Methemoglobin 0.9 % (0.4-1.5); Oxygen Device VENT; Oxygen Saturation ABG 94.6; PO2 ABG 74.4 mmHg (80.0-100.0); Potassium Level - ABG 4.5 mmol/L (3.5-5.0); Total Hemoglobin 10.1 g/dL (14-18)
[2021-03-14] MEDS: pantoprazole 40 mg SDV IVP (16:01)
--- NOTE | 2021-03-14 17:01 | USCV_ITS ---
Sonia Castellon Age: 80 Gender: M : 1940 Exam Date: 03/14/2021 06:31 Ordering Phys: Presley Robbins MD Technologist: Christine Conde Exam Location: [facility] [place] Indication: POST CODE BP: 70 / 49 HR: 90 Rhythm: Other Technical Quality: Technically difficult study MEASUREMENTS (Male / Female) Normal Values 2D ECHO LV Diastolic Diameter PLAX 4.2 cm 4.2 - 5.9 / 3.9 - 5.3 cm LV Systolic Diameter PLAX 3.0 cm LV Chamber Size 3.4 cm IVS Diastolic Thickness 1.5 cm 0.6 - 1.0 / 0.6 - 0.9 cm IVS Systolic Thickness 1.7 cm LVPW Diastolic Thickness 1.6 cm 0.6 - 1.0 / 0.6 - 0.9 cm LVPW Systolic Thickness 1.6 cm RV Chamber Size 5.3 cm LVOT Diameter 2.0 cm LV Ejection Fraction 2D Teich 55.2 % LV Ejection Fraction MOD 2C 43.8 % LV Ejection Fraction 2C AL 45.1 % LA Diameter 3.3 cm LA Width 4.3 cm LA Height 4.0 cm RA Width 4.9 cm RA Height 5.0 cm Aorta at Sinotubular Diameter 3.9 cm M-MODE LV Diastolic Diameter MM 5.9 cm 4.2 - 5.9 / 3.9 - 5.3 cm LV Systolic Diameter MM 4.4 cm LV Ejection Fraction MM Teich 47.5 % IVS Diastolic Thickness MM 1.5 cm 0.6 - 1.0 / 0.6 - 0.9 cm IVS Systolic Thickness MM 1.8 cm LVPW Diastolic Thickness MM 0.9 cm 0.6 - 1.0 / 0.6 - 0.9 cm LVPW Systolic Thickness MM 1.7 cm Aortic Annulus Diameter 4.1 cm LA Ao Ratio MM 0.9 MV E Point Septal Separation 0.6 cm DOPPLER AV Peak Velocity 134.0 cm/s LVOT Peak Velocity 71.0 cm/s AV Area Cont Eq vti 1.5 cm squared AV Area Cont Eq pk 1.7 cm squared MV Area PHT 5.0 cm squared Mitral E to A Ratio 167.2 MV E' Velocity 48.0 cm/s Mitral E to MV E' Ratio 6.8 Mitral E to LV E' Lateral Ratio 6.9 Mitral E to LV E' Septal Ratio 6.7 TR Peak Velocity 211.1 cm/s TR Peak Gradient 17.8 mmHg TR Mean Velocity 148.8 cm/s TR Mean Gradient 10.1 mmHg TR Velocity Time Integral 54.4 cm TV Peak E Velocity 87.0 cm/s Right Atrial Pressure 15.0 mmHg Pulmonary Artery Systolic Pressu 32.8 mmHg PV Peak Velocity 53.0 cm/s RV Acceleration Time 0.2 s RV Ejection Time 0.3 s RV AcT/ET 0.6 FINDINGS Left Ventricle Normal LV size with a borderline low ejection fraction of around 50%.abnormal septal motion consistent with conduction abnormality. Right Ventricle The right ventricle appears to be dilated with slightly diminished ejection fraction. Right Atrium Mildly increased right atrial size. Left Atrium Possibly of normal size Mitral Valve Thickened mitral valve. Aortic Valve Thickened aortic valve. Tricuspid Valve trace tricuspid valve regurgitation. Pulmonic Valve Pulmonic valve not well visualized. Pericardium No pericardial effusion. Aorta Normal aortic annulus size. CONCLUSIONS Normal LV size with a borderline low ejection fraction of around 50%. Abnormal septal motion consistent with conduction abnormality. The right ventricle appears to be dilated with slightly diminished ejection fraction. The PA pressure estimation could be misleading because of poor Doppler signals(estimated PA pressure 33 mmHg) Cannot exclude a pressure overload physiology. Mildly increased right atrial size. Thickened aortic and mitral valves Trace tricuspid valve regurgitation. There is no pericardial effusion. There are no intracardiac masses. No previous study is available for comparison. Dr Serge Sevilla MD [facility] (Electronically Signed) Final Date: 14 March 2021 08:21 S
--- NOTE | 2021-03-14 17:42 | PM.PN ---
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 it was replaced, now has good flow, slightly pink-tinged urine, he is receiving antibiotic therapy, CT angiogram was unremarkable for pulmonary emboli, he did receive therapeutic Lovenox overnight for chest pain, now placed on heparin drip, I advised patient's at bedside, the patient's critically ill, prognosis is poor, likely patient has developed acute respiratory failure secondary to pneumonia and pulmonary edema secondary to CHF, I am concerned for a cardiac event resulting in PEA, however he is too unstable for further evaluation, will follow up with cardiology, he also has evidence of multiorgan failure, acute renal failure, persistent fevers that are concerning for central in origin, does have some intact brainstem reflexes, but there is significant concern for anoxic brain injury. I discussed with patient's options are available, including continuing medical interventions, versus pursuing comfort care, for now she wants us to continue medical interventions Vitals/I&O/Wt Last Vital Signs Temp 99.9 F H 03/14/21 15:00 Pulse 101 H 03/14/21 16:15 Resp 52 H 03/14/21 15:52 BP 83/49 03/14/21 16:15 Pulse Ox 95 03/14/21 16:15 03/14/21 03/14/21 03/14/21 06:59 14:59 22:59 Intake Total 2443.802 / 2593.802 1664.272 / 3652.749 Output Total 500 / 500 250 / 250 Balance 1943.802 / 2093.802 1414.272 / 3402.749 Weight last 48 hrs Weight 90.718 kg Physical Exam Const: COMMON NORMALS: no acute distress OTHER: Intubated, sedated on mechanical ventilation Eye: OTHER: Pupils are pin Chest: COMMONS NORMALS: normal inspection of the chest Resp: COMMON NORMALS: normal respiratory effort, No retractions and No use of accessory muscles EFFORT & INSPECTION: Yes tachypneic AUSCULTATION: crackles Cardio: COMMON NORMALS: S1 normal heart sound present and S2 normal heart sound present RATE: tachycardic HEART SOUNDS: S1 normal heart sound present, S2 normal heart sound present and no murmurs GI: COMMON NORMALS: Normal to inspection, nondistended, normoactive bowel sounds present and Soft to palpation PALPATION: Yes Soft to palpation Extremity: COMMON NORMALS: no pedal edema Neuro: OTHER: Pupils are pinpoint, nonreactive to light, he does look upwards, withdraws from pain to some degree, Babinski is downward going bilaterally, Data : 03/14/21 12:10 03/14/21 02:00 Micro: Microbiology 03/13/21 16:35 Blood Culture - Preliminary Blood NEGATIVE TO DATE 03/13/21 16:27 Blood Culture - Preliminary Blood NEGATIVE TO DATE 03/13/21 13:32 Bacterial Antigens - Final Urine,Clean Catch A&P Assessment and plan (1) PEA (Pulseless electrical activity): -Initially admitted for chest pain, NSTEMI, pneumonia -Developed sinus bradycardia, followed by propofol drip. Heart, tenderness of CPR, 3 doses of epi, return of circulation -Initial CT angiogram of the chest showed: 1. Proximal main pulmonary arteries are normal. No evidence of pulmonary embolus. 2. Moderate chronic emphysematous changes with patchy infiltrates in both lower lobes. Recommend correlation for pneumonia. Tiny left and trace right pleural fluid. 3. Enlarged anterior mediastinal and peribronchial lymph nodes nonspecific but may be reactive. -for patchy infiltrates of bilateral lower lobes, was given Levaquin in the emergency room -Now on broad-spectrum antibiotic therapy, vancomycin, Primaxin -White blood cell count 16.3, pro-Lukasz 20, random cortisol 44.7, TSH 9.94 -Lactic acid 4.3 -Creatinine 1.6 -Rapid Covid negative, Covid PCR negative -I have gone over patient's CT angiogram with radiology, to ensure that there is no radiographic evidence of pulmonary -Initial baseline troponin 30, 6-hour 20.17, delta 4.1, no acute ST-T wave changes, managed on aspirin, statin, nitro drip, therapeutic Lovenox -Repeat troponin series after CPR, baseline troponin I 50, 6-hour 209, delta 59.6, no acute ST-T wave changes -Cardiac echocardiogram shows an EF borderline low at 50%, abnormal septal motion consistent with conduction abnormalities, right ventricle appears to be dilated with slightly diminished ejection fraction, pulmonary pressure 33 mmHg -Etiology likely multifactorial from multifocal pneumonia, CHF, pulmonary edema, septic shock, cardiac event Plan: -Currently managed in ICU -Intubated, sedated, on fentanyl, Versed -Last ABG shows a pH of 7.21, PO2 74.4, HCO3 15.5, PCO2 39.3, on 80% FiO2, tidal volume 450, PEEP of 8 -Continues to have tachypnea component related to acidemia, fluid overload -For metabolic acidosis, lactic acidosis, will start on bicarb drip -We will try Lasix therapy, but I am unsure if his blood pressures will tolerate -Patient might require CRRT to help with fluid overload given acute renal failure, creatinine 1.6, urine output 750 -Currently on Levophed, maximal epinephrine, maximal vasopressin, maximal dobutamine, however continues to have evidence of treatment resistant shock -Maintain MAP greater than 65 -We will stress dose steroids, Solu-Cortef 100 mg followed by 50 mg every 6 hours -Start levothyroxine 25 mcg every 24 hours IV push -Currently on broad-spectrum antibiotic therapy, vancomycin, Primaxin -Follow blood cultures, sputum cultures -Currently on heparin drip for concern for underlying cardiac etiology, continue aspirin, statin -Assess neurologic functioning, currently decerebrate posturing, pupils are pinpoint, minimally reactive, does withdraw from pain -Hyperthermia, concerning for possible central etiology, will manage fevers with Tylenol, cold packs, -We will forego targeted temperature management given significant shock, high oxygen requirements persistent tachypnea -Monitor blood sugars carefully -Monitor urine output -Full code -Protonix for GI prophylaxis -Heparin for DVT prophylaxis -Cardiology on consult -N.p.o. -Status is critical, prognosis is poor Status: Acute (2) Acute respiratory failure with hypoxia: Status: Acute (3) Pneumonia: Status: Acute (4) Septic shock: Status: Acute (5) Cardiogenic shock: Status: Acute (6) Lactic acidosis: Status: Acute (7) NSTEMI (non-ST elevated myocardial infarction): Status: Acute (8) Hematuria: -Initial Sheikh catheter likely was placed in the prostate, resulting in significant clots when Sheikh catheter was removed, bloody urine in the bag, since it was replaced urine output is slightly pink-tinged, no more clots Status: Acute (9) Chest pain: -Unstable angina -Baseline troponin 30, 120-minute 25.9, delta 4.1 -EKG no acute ST-T wave changes -Seems like cardiac in nature Plan: -Admit to CSU -Serial troponins, serial EKGs, telemetry monitoring -Cardiac echocardiogram -Consult cardiology service -Aspirin, statin, Coreg, continue nitro drip -We will start therapeutic Lovenox -N.p.o. midnight, for possible cardiac evaluation tomorrow morning Pneumonia of both lower lobes, CT angiogram shows patchy infiltrates bilateral lower lobes, -Currently on 2 L, has a complaint of cough, no fevers, has shortness of breath associated chest pain -Has received both Covid vaccinations -Rapid Covid negative, Covid PCR pending -Received Levaquin in the emergency room -Continue Rocephin and azithromycin -Follow blood cultures, urine bacterial antigens Dementia, continue home medications Cerebellar ataxia trigeminal neuralgia, continue home medications History of recurrent UTIs, obtain a UA Full code Lovenox for DVT prophylaxis Protonix for GI prophylaxis Status: Acute Qualifiers: Chest pain type: other chest pain Qualified Code(s): R07.89 - Other chest pain (10) Pneumonia of both lower lobes: Status: Acute Qualifiers: Pneumonia type: due to unspecified organism Qualified Code(s): J18.9 - Pneumonia, unspecified organism (11) Dementia: Status: Acute (12) Cerebellar ataxia: Status: Acute (13) Trigeminal neuralgia: Status: Acute (14) Acute renal failure: Status: Acute (15) Anoxic brain injury: Status: Acute Attestations Medical Necessity Statement*: Patient requires hospitalization for PEA, acute renal failure, septic shock, cardiogenic shock, lactic acidosis, pneumonia, multiorgan failure, concerns for anoxic brain injury Coding Level of Care Code 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
[2021-03-14] MEDS: DOBUTamine drip 500 MG/250 ML PREMIX 54.43 MG IV ×2 (17:59→23:05)
[2021-03-14] MEDS: levothyroxine 100 mcg SDV 25 MCG IVP (18:53)
[2021-03-14] MEDS: hydrocortisone 100 mg/2 mL SDV IVP (18:53)
--- NOTE | 2021-03-14 19:15 | PC.NURSE ---
Contact from [facility] stated new theresa jarvis as follows: Precedex - facility max fentanyl - 200 levophed - 200 dopamine - facility max epi - 30 stated to hold nimbex for now, start precedex
[2021-03-14 19:23] LABS: Partial Thromboplastin Time > 250.0 SECONDS (23.9-36.7)
[2021-03-14] MEDS: DOPamine drip 400 MG/250 ML PREMIX 17.01 MG IV (19:31)
[2021-03-14] MEDS: dexmedeTOMIDine 0.9 % NaCL 400 MCG/100 ML PREMIX IV (19:31)
[2021-03-14] MEDS: EPINEPHrine 10 MG in sodium chloride 0.9% 1,000 ML 181.8 MG IV (19:40)
--- NOTE | 2021-03-14 20:02 | NUR.SHIFT ---
0700 Patient having gross heamturia. Bladder scan [address] Robbins notified. 0715 Clarified [address] order [address] Dr[address] Robbins due to low plt count. Orders to give Plavix. 0730 Dr. Robbins at bedside. Reviewed vital signs, labs, and medications. Orders to increase Levo to 50 mcg/min. 0915 Dr. Sevilla at bedside. Reviewed EKG, imagining, medications, vital signs, and hematuria. [address] Robbins. Clarified orders for Heparin drip. Orders to irrigate the magana. Magana irrigated. 1030 Dr. Robbins at bedside. Orders to advance magana. Balloon deflated and attempt was made to advance magana. Unable to advance. Magana was discontinued and replaced. Small clots irrigated. Magana draining pink urine. Will continue to monitor. Orders to start heparin drip. 1200 Reported elevated Temp to Dr. Robbins. [address] Robbins to reported elevated Temp and respiratory rate. Orders for Tylenol and Versed drip. 1355 Reported elevated temp to Dr. Robbins. [address] Robbins to discuss plan of care related to elevated temp. 1430 Dr. Robbins on unit. Clarified orders for IV Tylenol due to recent administration of oral Tylenol. Orders to give IV Tylenol and place ice packs on patient's axilla and groin. Ice packs applied to patient for 20 minute cycles, skin assessed with each application. 1530 Reported low BP to Dr. Robbins. 1600 Reported blood gas results, UOP, and total hourly fluid volume patient receiving with IV drips. Orders for Bicarb drip. 1718 Reported low BP to Dr. Robbins. Orders to increase Levo drip to 100 mcg/min 1825 Dr. Robbins at bedside. Reviewed vital signs and medications. Orders to increase Epi drip to 40 mcg/min. [address] Robbins. Orders to DC Bicarb drip.
[2021-03-14] MEDS: morphine 4 mg/mL SDV 1 mL 2 MG IVP (21:16)
[2021-03-14 21:32] LABS: ABG PCO2 40.8 mmHg (35-45); Arterial Blood Gas Hematocrit 29.6 % (42-52); Base Excess ABG -14.4 mmol/L (-2.0-2.0); Blood Gas Sample Type Arterial; Carboxyhemoglobin 0.4 %THgb (0.4-20.1); HCO3 ABG 13.8 mmol/L (22-26); HGB O2 Sat 93.1 % (95-100); Ionized Calcium Level - ABG 0.9 mmol/L (1.1-1.4); Methemoglobin 1.1 % (0.4-1.5); Oxygen Saturation ABG 94.6; PO2 ABG 75.2 mmHg (80.0-100.0); Potassium Level - ABG 4.7 mmol/L (3.5-5.0); Total Hemoglobin 9.7 g/dL (14-18)
[2021-03-14 21:36] LABS: Alveolar-Arterial Oxygen Gradi 53.5 mmHg (5-10); Blood Gas Sample Site Brachial, right; Blood Gas Tidal Volume 0.48; Oxygen Device VENT
[2021-03-14 21:40] LABS: ABG PH Result 7.14 (7.35-7.45)
[2021-03-14 22:13] LABS: Glucose Point of Care 353 mg/dL (70-110)
[2021-03-14] MEDS: hydrocortisone 100 mg/2 mL SDV 50 MG IVP (23:58)
[2021-03-15] VITALS (24 sets, daily range): BP systolic 0–89; BP diastolic 0–54; PULSE 0–112; RESP 0–25; TEMP -17.7–37.7; O2SAT 0–96
[2021-03-15 00:05] LABS: Partial Thromboplastin Time 187.5 SECONDS (23.9-36.7)
[2021-03-15] MEDS: morphine 4 mg/mL SDV 1 mL 2 MG IVP ×2 (00:23→03:36)
[2021-03-15] MEDS: EPINEPHrine 10 MG in sodium chloride 0.9% 1,000 ML 121.2 MG IV (00:54)
--- NOTE | 2021-03-15 01:10 | XRR_ITS ---
PROCEDURE INFORMATION: Exam: XR Abdomen Exam date and time: 03/15/2021 1:10 AM Age: 80 years old Clinical indication: Bloating; Prior surgery; Surgery type: Aorta graft; Patient HX: New onset of abd distention. Intubated post code blue 03/14/2021. ; Additional info: Distended belly TECHNIQUE: Imaging protocol: XR of the abdomen. Views: Frontal supine view of the abdomen. 1 View. COMPARISON: CT abdomen pelvis w con* [id number] 07/26/2020 11:18 AM FINDINGS: Tubes, catheters and devices: Nasogastric tube is in good position. Gastrointestinal tract: Bowel gas pattern is nonspecific but nonobstructive. Vasculature: Stable aortoiliac stent graft. Bones/joints: Unremarkable. XR/XR KUB portable [id number] IMPRESSION: 1. Nasogastric tube is in good position. 2. Bowel gas pattern is nonspecific but nonobstructive.
[2021-03-15] MEDS: DOPamine drip 400 MG/250 ML PREMIX 68.04 MG IV (01:35)
[2021-03-15] MEDS: sodium bicarbonate 150 MEQ in dextrose 5% 1,000 ML 50 MEQ IV (01:40)
[2021-03-15] MEDS: dexmedeTOMIDine 0.9 % NaCL 400 MCG/100 ML PREMIX 18.14 MCG IV (01:47)
[2021-03-15] MEDS: pantoprazole 40 mg SDV IVP (03:17)
[2021-03-15] MEDS: DOBUTamine drip 500 MG/250 ML PREMIX 54.43 MG IV (03:17)
[2021-03-15 05:02] LABS: Basophils # 0.1 10^3/uL (0.0-0.1); Basophils % 0.3 %; Hematocrit 30.1 % (42.0-52.0); Lymphocytes # 1.3 10^3/uL (0.8-4.8); Lymphocytes % 3.9 %; Mean Corpuscular HGB Conc 29.9 g/dL (30.0-36.0); Mean Corpuscular Volume 107.1 fl (80-94); Mean Platelet Volume 11.6 fL (7.4-10.4); Monocytes # 0.5 10^3/uL (0.2-0.9); Monocytes % 1.4 %; Neutrophils # 30.33 10^3/uL (1.8-7.7); Neutrophils % 91.6 %; Nucleated Red Blood Cells % 0.1 %; Platelet Count 45 10^3/cmm (130-400); Red Blood Count 2.81 10^6/uL (4.1-5.3); Red Cell Distribution Width 14.9 % (12.1-15.1)
--- NOTE | 2021-03-15 05:05 | PM.EVENT ---
Event Note Event Note: Patient continued to be critically ill through the night, on 4 pressors, worsening metabolic acidosis on ABG. Faustino sofia called at 4:50 am after he developed asystole. Bleeding additionally noted in ETT. CPR started immediately per ACLS protocol. Received chest compressions, 2 doses of epinephrine. mechanical ventilation continued. 6 minutes of chest compressions given. After 6 min, patient continued to be in asystole, no cardiac sounds were audible, no spontaneous respirations, pupils fixed, not reactive to light, no corneal reflex. Patient declared at 4:57AM on 03/15/21. called to update, however went to voicemail. Event Notes Attestations Time Spent in Patient Care: 16 - 35 minutes
--- NOTE | 2021-03-15 05:15 | PC.NURSE ---
MTS contacted, they are to contact nursing staff once they determine eligibility
[2021-03-15 05:18] LABS: INR 2.17 (0.8-1.2)
[2021-03-15 05:19] LABS: Fibrinogen 269 mg/dL (174-498)
[2021-03-15 05:20] LABS: Alanine Aminotransferase 83 U/L (0-41); Albumin Level 1.7 g/dL (3.5-5.2); Alkaline Phosphatase 103 IU/L (40-130); Anion Gap 19.5 (5-19); Aspartate Amino Transferase 89 U/L (0-40); Blood Urea Nitrogen 43 mg/dL (8-23); C Reactive Protein 183.5 mg/L (0.0-4.9); Carbon Dioxide 13 mmol/L (22-29); Chloride 89 mmol/L (98-107); Globulin 1.7 g/dL (1.3-4.6); Magnesium 1.5 mg/dL (1.7-2.3); Osmolality Calculated 280 mOsm/kg (285-295); Phosphorus 4.8 mg/dL (2.5-4.5); Potassium 5.5 mmol/L (3.5-5.1); Total Bilirubin 2.8 mg/dL (0.15-1.2); Total Protein 3.4 g/dL (6.6-8.7)
--- NOTE | 2021-03-15 05:23 | PC.NURSE ---
Addendum entered by Eyad Brar RN 03/15/21 05:24: witnessed fentanyl and versed waste Original Note: MEDICATION WASTE fentanyl waste 43 ml versed waste 99 ml Both medicines wasted with NAYLA Castano
--- NOTE | 2021-03-15 05:24 | PC.NURSE ---
PATIENT CODE Primary nurse and two RT were in the patient room. Pt monitor began to alarm a rhythm of asystole. Oulse checked. No pulse detected. Code called, compressions started, RT began bagging (449). PT called. See code report sheet for details. TOD called at [phone].
[2021-03-15 05:26] LABS: Creatinine Clr Calc Pharmacy 19.6292
[2021-03-15 05:27] LABS: Partial Thromboplastin Time 131.9 SECONDS (23.9-36.7)
[2021-03-15 05:28] LABS: Calcium 5.2 mg/dL (8.5-10.5); Glucose 586 mg/dL (65-115); Lactate (Lactic Acid level) 4.7 mmol/L (0.5-2.2); Sodium 116 mmol/L (136-145)
[2021-03-15 05:38] LABS: D Dimer >= 20.00 ug/mIFEU (0-0.59)
[2021-03-15 05:53] LABS: Troponin T (5th) Once 174 ng/L (0-15)
[2021-03-15 05:54] LABS: White Blood Count 33.1 10^3/uL (4.0-10.0)
--- NOTE | 2021-03-15 05:57 | PC.NURSE ---
MTS called back and pt is possibly eligible for donation. Pt contanct information passed along to [facility] employee Goldie.
[2021-03-15 06:04] LABS: Slide Review Slide Review Perform
--- NOTE | 2021-03-15 07:00 | XR_ITS ---
WS: [id number] Portable AP semiupright chest, 03/15/2021 Clinical Data: sob Comparison: Portable chest, 03/14/2021 Findings: The bilateral pulmonary opacities not changed. The endotracheal tube, nasogastric tube and monitor leads remain the same. The heart is enlarged. There is a right pleural effusion. The aortic a rch is tortuous. There is dystrophic calcification inferior to the right shoulder joint in the axilla unchanged. XR/XR chest 1V portable [id number] Impression: 1. No change in bilateral pulmonary opacities. 2. No change in endotracheal tube and nasogastric tube.
[2021-03-15 07:46] LABS: Creatine Phosphokinase 2239 U/L (39-308); Procalcitonin > 100.00 ng/mL (0-0.5)
--- NOTE | 2021-03-15 09:55 | PC.NURSE ---
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
--- NOTE | 2021-03-15 12:44 | PC.NURSE ---
Per promotional advertising assistant report removed all personal effects.
--- NOTE | 2021-03-15 12:48 | PC.NURSE ---
Per zigzag tunnel elastic operator report, removed all personal effects.
[2021-03-16 17:32] LABS: Blood Gas Sample Site ARTERY
--- NOTE | 2021-03-30 09:21 | PM.DDS ---
Discharge Providers DDS Date of Admission: 03/14/21 04:30 Date Summary Completed: 03/30/21 Attending Provider at Admission: Presley Robbins MD Time of : 04:57 Attending Provider at Discharge: Presley Robbins MD Primary Care Provider: Angie Mendez MD DS Diagnoses Hospital Diagnoses (1) Hypotension: Qualifiers: Hypotension type: unspecified hypotension type Qualified Code(s): I95.9 - Hypotension, unspecified (2) Acute respiratory failure with hypoxia: (3) PEA (Pulseless electrical activity): (4) Chest pain: (5) Atherosclerotic heart disease of [place] coronary artery with other forms of angina pectoris: (6) Pneumonia of both lower lobes: Qualifiers: Pneumonia type: due to unspecified organism Qualified Code(s): J18.9 - Pneumonia, unspecified organism (7) Cerebellar ataxia: (8) Benign essential hypertension with target blood pressure below 140/90: (9) Dyslipidemia: Reason for Visit Reason for Visit: CHEST PAIN Summary Date and Time of Date of : 03/15/21 Time of : 04:57 Summary Summary: Sonia Castellon is a 80 year old male history of recurrent UTIs, cerebellar dysfunction, trigeminal neuralgia, dementia, CAD status post stenting x1 who presents to [facility] due to complaints of chest pain. Patient was admitted to [facility] for chest pain, non-ST elevation TN, cardiology was consulted, managed with aspirin, statin, Coreg, nitro drip, therapeutic Lovenox. In addition he was found to have pneumonia of bilateral lower lobes, currently on 2 L, was managed with antibiotic therapy. Overnight, patient developed asystole, CPR ACLS protocol was initiated, patient was intubated, successful return of circulation, moved to ICU. Likely patient developed acute hypoxic respiratory failure with asystole secondary to pneumonia, pulmonary edema, congestive heart failure, and non-ST elevation TN. Patient was managed in the ICU, on 4 pressor therapy, concerning for combined septic and cardiogenic shock, on mechanical ventilation, requiring 100% FiO2, had poor neurologic responses, decerebrate posturing, evidence of multiorgan failure, acute renal failure, concerns for anoxic brain injury. In addition he had severe metabolic acidosis with lactic acidosis. Patient remained critically ill throughout the day 03/14/2021, prognosis poor, family wanted to continue medical interventions, developed asystole at 4:50 AM on 03/15/2021, ACLS protocol started, CPR started, after 6 minutes of asystole, no cardiac sounds audible, no spontaneous respirations, pupils fixed, no corneal reflex, patient 4:57 AM on 03/15/2021. Patient was updated by overnight physician early in the morning, in addition I updated in the ICU early in the morning on 03/15/2021. Additional Data Confirmation of as documented by pronouncing clinician: no pulse Family: contacted and attempt made Additional persons at bedside: nursing staff Attending/PCP notified?: Attending notified Was code activated?: Yes Autopsy requested?: No Advance directives?: No Hospice patient?: No Discharge Plan Discharge Patient Disposition: Condition: Stable DS Attestations Time Spent in /Discharge Care*: less than 30 min Quality - AMI: AMI present?: No Quality - Stroke: CVA present?: No Symptom Onset Unknown: No Quality - VTE: VTE present?: No Deep Vein Thrombosis/Pulmonary Embolism Present on Admission: No Coding Level of Care Code 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
== END 2021-03-15 09:30 | disposition expired | DRG 208 ==
LOC: ER 11:36 → CSU 14:40 → ICU 03-14 02:06
PROVIDERS: Internal Medicine Cardiovascular Disease; Student in an Organized Health Care Education/Training Program; Admitting Provider Family Medicine; Emergency Provider Family Medicine; PCP Family Medicine; Visit Provider Family Medicine
DX: J18.9 Pneumonia, unspecified organism (principal); J96.01 Acute respiratory failure with hypoxia; I21.4 Non-ST elevation (NSTEMI) myocardial infarction; I25.110 Atherosclerotic heart disease of native coronary artery with unstable angina pectoris; G11.9 Hereditary ataxia, unspecified; N17.9 Acute kidney failure, unspecified; G93.1 Anoxic brain damage, not elsewhere classified; E87.2 Acidosis; I71.4 Abdominal aortic aneurysm, without rupture; Z87.440 Personal history of urinary (tract) infections; F17.220 Nicotine dependence, chewing tobacco, uncomplicated; G50.0 Trigeminal neuralgia; F03.90 Unspecified dementia, unspecified severity, without behavioral disturbance, psychotic disturbance, mood disturbance, and anxiety; G62.9 Polyneuropathy, unspecified; E78.5 Hyperlipidemia, unspecified; I11.0 Hypertensive heart disease with heart failure; I50.9 Heart failure, unspecified; I46.9 Cardiac arrest, cause unspecified; I95.9 Hypotension, unspecified; R57.0 Cardiogenic shock; R07.81 Pleurodynia; N40.0 Benign prostatic hyperplasia without lower urinary tract symptoms
CPT/HCPCS: 36415; 36416; 36592; 36600; 71045; 71275; 74018; 80051; 80053; 81001; 81003; 82330; 82533; 82550; 82803; 82805; 82962; 83605; 83735; 83880; 84100; 84145; 84443; 84484; 85007; 85025; 85362; 85378; 85384; 85610; 85730; 86140; 86403; 87040; 87070; 87077; 87086; 87186; 87205; 87426; 87635; 87641; 93005; 93306; 94002; 94664; 94799; 96365; 96367; 96372; 96375; 99285; C9113; G0378; J0171; J0743; J1250; J1265; J1644; J1650; J1720; J1956; J2250; J2270; J3010; J3370; J3490; J7030; J7040; J7050; Q9967